=== PATIENT | female | born 1980 | race American Indian/Alaskan Native ===

== ENCOUNTER 2017-07-31 01:34 | Inpatient (IN) | payer MEDICAID, OTHER ==
--- NOTE | 2017-07-31 02:09 | C.PDOC ---
History Of Present Illness pt was seen and medically cleared at [facility] and was accepted in transfer by dr jimenes. Sapna voices no complaints at the present time Time Seen by Provider: 07/31/17 02:03 Chief Complaint (Nursing): Substance Abuse History Per: Patient History/Exam Limitations: no limitations Onset/Duration Of Symptoms: Days Current Symptoms Are (Timing): Still Present Suicide/Self Injury Attempted (Context): None Modifying Factor(s): Alcohol Severity: None Associated Symptoms: Depression Involuntary Hold By: None Recent travel outside of the [place]: No Additional History Per: Patient, EMS Past Medical History Reviewed: Historical Data, Nursing Documentation, Vital Signs Vital Signs: Last Vital Signs Temp 98.2 F 07/31/17 01:42 Pulse 86 07/31/17 01:42 Resp 18 07/31/17 01:42 BP 134/85 07/31/17 01:42 Pulse Ox 99 07/31/17 02:09 - Medical History PMH: Depression Family History: States: No Known Family Hx - Social History Hx Alcohol Use: Yes Hx Substance Use: No - Immunization History Hx Tetanus Toxoid Vaccination: No Hx Influenza Vaccination: No Hx Pneumococcal Vaccination: No Review Of Systems Constitutional: Negative for: Fever, Chills Cardiovascular: Negative for: Chest Pain Respiratory: Negative for: Shortness of Breath Gastrointestinal: Negative for: Abdominal Pain Musculoskeletal: Negative for: Back Pain Skin: Negative for: Rash Neurological: Negative for: Weakness Psych: Positive for: Depression Physical Exam - Physical Exam Appears: Non-toxic, No Acute Distress Skin: Warm, Dry Neck: Supple Chest: Symmetrical Cardiovascular: Rhythm Regular Respiratory: No Rales, No Rhonchi, No Wheezing Gastrointestinal/Abdominal: Soft, No Tenderness, No Distention Back: Normal Inspection Extremity: Normal ROM Extremity: Bilateral: Atraumatic Gait: Steady ED Course And Treatment O2 Sat by Pulse Oximetry: 99 Pulse Ox Interpretation: Normal Disposition Discussed With : Jimi Jimenes Comment: accepted the pt onhis service and took over the care at 2:10 AM Doctor Will See Patient In The: Hospital Counseled Patient/Family Regarding: Studies Performed, Diagnosis - Disposition Disposition: HOSPITALIZED Disposition Time: 02:09 Condition: FAIR Forms: [facility] (Swedish) - POA Present On Arrival: None - Clinical Impression Clinical Impression: Alcohol abuse, Major depression Decision To Admit - Pt Status Changed To: Hospital Disposition Of: Inpatient - Admit Certification Admit to Inpatient:: After my assessment, the patient will require hospitalization for at least two midnights. This is because of the severity of symptoms shown, intensity of services needed, and/or the medical risk in this patient being treated as an outpatient. - InPatient: Physician Admission Certification: I certify that this patient requires 2 or more midnights of care for the following reason:: After my assessment, the patient will require hospitalization for at least two midnights. This is because of the severity of symptoms shown, intensity of services needed, and/or the medical risk in this patient being treated as an outpatient. - . Bed Request Type: Psychiatry Admitting Physician: Jimi Jimenes Patient Diagnosis: Alcohol abuse, Major depression
--- NOTE | 2017-07-31 02:55 | PCM.BM ---
<RabiaLeatha florez - Last Filed: 07/31/17 02:53> Treatment Plan Problems - Problems identified on initial assessmt Depression Date Initiated: 07/31/17 Time Initiated: 02:50 Assessment reference: NA Status: Active Alcohol Abuse Date Initiated: 07/31/17 Time Initiated: 02:50 Assessment reference: NA Status: Active Treatment assets and liabiliti Patient Assests: cooperative, ADL independent, negotiates basic needs, cognitively intact Patient Liabilities: financial problems, relationship conflicts, substance abuse - Milieu Protocol Maintain good personal hygiene: daily Encourage regular showers, daily Remind patient to perform daily oral care, daily Assist patient to perform ADL's Conduct patient checks and document Observation sheet: Q15 minutes Maintain personal safety: every shift Educate patient to report safety concerns to staff, every shift Monitor environment for contraband/sharps Medication safety: Monitor for expected outcome, potential side effects: every shift, Assess barriers to learning: every shift, Assess readiness for medication education: every shift <Trena Carlton - Last Filed: 08/02/17 11:00> Family Contact Family involvement: Famliy/SO not involved - Goals for Treatment Patient goals for treatment: "I need help." Discharge/Continuing Care - Education Needs Education Needs: Patient Medication, Patient Coping Skills, Patient Placement options, Patient Community resources - Discharge Discharge Criteria: Tolerates medication w/o severe side effects, No longer exhibiting s/s of withdrawal Discharge to:: Home - Treatment Team Participation Discussed with Family/SO: No Was Patient/Family/SO present at Treatment Team Meeting: Yes <Jimi Jimenes - Last Filed: 08/02/17 11:05> - Diagnosis (1) Major depressive disorder, recurrent severe without psychotic features Status: Acute Interventions: 08/02/17 11:05 * Assess/adjust medications daily and /or as needed * See patient on an individual basis 7x/week to assess symptoms of depression * Monitor for side effects & effectiveness of medications * (2) Alcohol abuse Status: Acute Interventions: 08/02/17 11:05 * Assess 7x/week regarding severity of withdrawal * Educate regarding risks, benefits, side effects and alternatives of medications * Use Motivational Interviewing for abstinence * Use CBT for relapse prevention * Medication management for withdrawal symptoms * Encourage medication assisted treatment *
[2017-07-31] MEDS: Multiple Vitamins Tab PO SCH (11:16)
--- NOTE | 2017-07-31 13:12 | PCM.PSYCH ---
Initial Psychiatric Evaluation - Initial Psychiatric Evaluation Type of Admission: Voluntary Legal Status: Capacity Chief Complaint (in patient's own words): depressed, hallucinations History of Present Illness and Precipitating Events: 37 year old AA Female who was voluntary admitted due to depression and hallucinations. She is currently lives in an apartment, alone with no kids in [place], [place]. She was recently employed by a [email or web address], but was laid off 05/2017. She is currently unemployed and with an educational level of GED. Patient reports when she was 15 years old, she made a suicide attempt by trying to overdose on pain medication after a breakup. She was found on the bathroom floor and rushed to the hospital, where she remained in the ICU for a week. She reports following up with a Psychiatrist as outpatient for less than 5 visits. She was not started on any medications nor did she follow up with anyone since that event. In recent events, patient reports drinking every day 1-2 pints of wine initially and now vodka daily. She reports anxiety and tremors when she does not drink. Last drink was 5 days prior to day of admission. She reported that was the first time that she started to hallucinate. She stated she saw "little, short green men pointing at her, laughing and they had little voices". She also felt that someone was coming to get her, so she packed her bags and left her apartment. Police were called by neighbors due to the patient leaving all disheveled and distraught, with her apartment door wide open. She reports she does not sleep well at night, due to the constant racing thoughts. She is woken up every 30 minutes due to these thoughts, which she explains, are like a movie. She will fall asleep focused on one thought, and her dreams will pertain to that thought and it will play like a movie. Whether the movie starts or stops is dependent on whether she is sleeping or awake. Currently denies any voices being heard, any suicidal ideation or homicidal ideation. Patient has poor judgment and insight about her condition. PMHx: Neuropathy (no history of DM or neurological workup) Past Psych History: Depression, suicide attempt at the age of 15 by overdosing on pain medication Family Psych Hx: Unknown Current Medications: Active Medications Generic Name Dose Route Start Last Admin Trade Name Freq PRN Reason Stop Dose Admin Clonidine HCl 0.1 mg 07/31/17 10:45 Catapres PO Q4H PRN Symptoms of alcohol withdrawl Folic Acid 1 mg 07/31/17 11:00 07/31/17 11:16 Folic Acid PO 1 mg DAILY SUN Administration Lorazepam 1 mg 07/31/17 10:45 Ativan PO Q6 PRN Symptoms of alcohol withdrawl Multivitamins 1 tab 07/31/17 11:00 07/31/17 11:16 Hexavitamin PO 1 tab DAILY SUN Administration Pneumococcal Polyvalent Vaccine 0.5 ml 08/03/17 10:00 Pneumovax 23 Vaccine IM 08/03/17 10:01 .ONCE ONE Sertraline HCl 50 mg 08/01/17 10:00 Zoloft PO DAILY SUN Thiamine HCl 100 mg 07/31/17 11:00 07/31/17 11:16 Vitamin B1 Tab PO 100 mg DAILY SUN Administration Trazodone HCl 50 mg 07/31/17 22:00 Desyrel PO HS PRN Insomnia Past Psychiatric History - Past Psychiatric History Pertinent Medical Hx (Current Medical&Sleep Prob, Allergies): Allergies Allergy/AdvReac Type Severity Reaction Status Date / Time No Known Allergies Allergy Unverified 07/31/17 01:37 Folic Acid 1 mg PO DAILY 07/31/17 Magnesium Oxide [Mag-Ox] 400 mg PO DAILY 07/31/17 Potassium Chloride [K-Dur 20] 20 meq PO DAILY 07/31/17 Sod Phos Di, [place]/K Phos Licking [Phospha 250 Neutral Tablet] 500 mg PO DAILY 07/31 Review of Systems - Review of Systems All systems: reviewed and no additional remarkable complaints except - Psychiatric Psychiatric: Auditory Hallucinations, Depression, Difficulty Concentrating, Hallucinations, Irritability, Paranoia. absent: Suicidal Ideation, Visual Hallucinations Mental Status Examination - Personal Presentation Personal Presentation: Looks older than stated age - Affect Affect: Flat, Depressed - Motor Activity Motor Activity: Calm - Reliability in Providing Information Reliability in Providing Information: Poor, due to alteration in thoughts, Poor , due to altered mood - Speech Speech: Organized, Relevant, Incoherent - Mood Mood: Depressed - Formal Thought Process Formal Thought Process: Hallucinations, Paranoia - Hallucinations/Delusions Hallucinations: Visual, Auditory - Cognitive Functions Orientation: Person, Place, Situation, Time Judgement: Imparied, as evidence by: Poor judgement, Imparied, as evidence by: Lack of insight into illness - Limitations Limitations: Living alone DSM 5 DX - Recommended/Plan of Treatment Treatment Recommendations and Plan of Treatment: Major Depressive Disorder -CBT -Psychoeducation -Supportive therapy, group therapy, individual therapy -Zoloft 50mg by mouth daily Alcohol Use Disorder -CBT -Psychoeducation -Supportive therapy, individual therapy -Use IA for abstinence -MV, Thiamine and Folic acid daily -Ativan and Clonidine as needed for withdrawal symptoms DW Dr. Jimenes, Fadumo Forbes DO, PGY-1
[2017-08-01 08:32] LABS: ALB/GLOB RATIO 0.9 (1.0-2.1); ALBUMIN 2.6 g/dL (3.5-5.0); ALT/SGPT 67 U/L (9-52); AST/SGOT 213 U/L (14-36); BLOOD UREA NITROGEN 6 mg/dL (7-17); CALCIUM 8.1 mg/dl (8.6-10.4); GFR AFRICAN-AMERICAN > 60; GFR NON-AFRICAN AMERICAN > 60
[2017-08-01] MEDS: Multiple Vitamins Tab PO SCH (09:59)
--- NOTE | 2017-08-01 22:11 | PCM.PYCHPN ---
Psychiatric Progress Note - Psychiatric Progress Note Patient seen today, length of contact: 15 min Patient Chief Complaint: I'm feeling depressed Problems Identified/Issues Discussed: Patient seen and evaluated, chart reviewed and discussed with the nurse. As per the staff, patient still appears isolated, depressed and withdrawn. She reports depressed mood and reports at times feelings of hopelessness and helplessness. She reports some withdrawal symptoms including cramps, anxiety and sweating. She reports some improvement in the voices and sleep. She needs some more time for stabilization. She is compliant with her medications and denies any side effects. Supportive therapy and psychoeducation were given. Medication Change: Yes (Increase Zoloft) Medical Record Reviewed: Yes Mental Status Examination - Cognitive Function Orientation: Person, Place, Situation, Time Memory: Intact Attention: WNL Concentration: Poor Association: WNL Fund of Knowledge: Poor - Mood Mood: Depressed, Anxious - Affect Affect: Constricted, Depressed - Formal Thought Process Formal Thought Process: Hallucinations, Paranoia - Suicidal Ideation Suicidal Ideation: No - Homicidal Ideation Homicidal Ideation: No Goal/Treatment Plan - Goal/Treatment Plan Need for Continued Stay: Severe depression anxiety, Severe functional impairment Progress Toward Problem(s) and Goals/Treatment Plan: Major Depressive Disorder recurrent severe with psychotic features -CBT -Psychoeducation -Supportive therapy, group therapy, individual therapy -Trazodone 50 mg by mouth daily at bedtime -Increase Zoloft to 100 mg by mouth daily Alcohol Use Disorder -CBT -Psychoeducation -Supportive therapy, individual therapy -Use GA for abstinence -MV, Thiamine and Folic acid daily -Ativan and Clonidine as needed for withdrawal symptoms - Smoking Cessation Smoking Cessation Initiated: No
[2017-08-02] MEDS: Multiple Vitamins Tab PO SCH (09:43)
--- NOTE | 2017-08-02 11:05 | PCM.PYCHPN ---
Psychiatric Progress Note - Psychiatric Progress Note Patient seen today, length of contact: 15 min Patient Chief Complaint: My stomach is hurting.' Problems Identified/Issues Discussed: Patient seen and evaluated, chart reviewed and discussed with the nurse. The patient reports pain in her stomach, however she denies any vomiting, diarrhea or any other symptoms. She still reports depressed mood but reports some improvement in the feelings of hopelessness. As per the staff, patient still appears isolated, depressed and withdrawn. She reports some improvement in the voices and sleep. She needs some more time for stabilization. She is compliant with her medications and denies any side effects. Supportive therapy and psychoeducation were given. Medication Change: Yes (Start Neurontin) Medical Record Reviewed: Yes Mental Status Examination - Cognitive Function Orientation: Person, Place, Situation, Time Memory: Intact Attention: WNL Concentration: Poor Association: WNL Fund of Knowledge: Poor - Mood Mood: Depressed, Anxious - Affect Affect: Constricted, Depressed - Formal Thought Process Formal Thought Process: Hallucinations - Suicidal Ideation Suicidal Ideation: No - Homicidal Ideation Homicidal Ideation: No Goal/Treatment Plan - Goal/Treatment Plan Need for Continued Stay: Severe depression anxiety, Severe functional impairment Progress Toward Problem(s) and Goals/Treatment Plan: Major Depressive Disorder recurrent severe with psychotic features -CBT -Psychoeducation -Supportive therapy, group therapy, individual therapy -Trazodone 50 mg by mouth daily at bedtime -Increase Zoloft to 100 mg by mouth daily -Neurontin 100 mg by mouth 3 times a day Alcohol Use Disorder -CBT -Psychoeducation -Supportive therapy, individual therapy -Use [place] for abstinence -MV, Thiamine and Folic acid daily -Ativan and Clonidine as needed for withdrawal symptoms - Smoking Cessation Smoking Cessation Initiated: No
[2017-08-03 08:55] LABS: BASO # 0.1 K/uL (0.0-0.2); BASO % 0.3 % (0.0-2.0); EOS # 0.1 K/uL (0.0-0.7); EOS % 0.3 % (0.0-4.0); HEMOGLOBIN 12.1 g/dL (11.0-16.0); LYMPH # 1.9 K/uL (1.0-4.3); LYMPH % 10.5 % (20.0-40.0); MEAN CELL VOLUME 107.3 fL (81.0-99.0); MEAN CORPUSCULAR HEMOGLOBIN 38.4 pg (27.0-31.0); MEAN CORPUSCULAR HGB CONC 35.8 g/dL (33.0-37.0); MEAN PLATELET VOLUME 9.1 fL (7.2-11.7); MONO # 1.5 K/uL (0.0-0.8); NEUT # 14.7 K/uL (1.8-7.0); NEUT % 80.9 % (50.0-75.0); RBC 3.17 Mil/uL (3.80-5.20); WHITE BLOOD COUNT 18.2 K/uL (4.8-10.8)
[2017-08-03 09:22] LABS: ALB/GLOB RATIO 0.9 (1.0-2.1); ALBUMIN 3.4 g/dL (3.5-5.0); ALT/SGPT 78 U/L (9-52); AMYLASE 64 U/L (30-110); AST/SGOT 185 U/L (14-36); BLOOD UREA NITROGEN 8 mg/dL (7-17); CALCIUM 8.6 mg/dl (8.6-10.4); GFR AFRICAN-AMERICAN > 60; GFR NON-AFRICAN AMERICAN > 60; LIPASE 183 U/L (23-300)
[2017-08-03] MEDS: Multiple Vitamins Tab PO SCH (09:33)
--- NOTE | 2017-08-03 09:49 | PCM.PYCHPN ---
Psychiatric Progress Note - Psychiatric Progress Note Patient seen today, length of contact: 15 min Patient Chief Complaint: My stomach is hurting.' Problems Identified/Issues Discussed: Patient seen and evaluated, chart reviewed and discussed with the nurse. The patient reports pain in her stomach, however she denies any vomiting, diarrhea or any other symptoms. She still reports depressed mood but reports some improvement in the feelings of hopelessness. As per the staff, patient still appears isolated, depressed and withdrawn. She reports some improvement in the voices and sleep. She needs some more time for stabilization. She is compliant with her medications and denies any side effects. Supportive therapy and psychoeducation were given. Medication Change: Yes (Start Neurontin) Medical Record Reviewed: Yes Mental Status Examination - Cognitive Function Orientation: Person, Place, Situation, Time Memory: Intact Attention: WNL Concentration: Poor Association: WNL Fund of Knowledge: Poor - Mood Mood: Depressed, Anxious - Affect Affect: Constricted, Depressed - Formal Thought Process Formal Thought Process: Hallucinations - Suicidal Ideation Suicidal Ideation: No - Homicidal Ideation Homicidal Ideation: No Goal/Treatment Plan - Goal/Treatment Plan Need for Continued Stay: Severe depression anxiety, Severe functional impairment Progress Toward Problem(s) and Goals/Treatment Plan: Major Depressive Disorder recurrent severe with psychotic features -CBT -Psychoeducation -Supportive therapy, group therapy, individual therapy -Trazodone 50 mg by mouth daily at bedtime -Increase Zoloft to 100 mg by mouth daily -Neurontin 100 mg by mouth 3 times a day Alcohol Use Disorder -CBT -Psychoeducation -Supportive therapy, individual therapy -Use [place] for abstinence -MV, Thiamine and Folic acid daily -Ativan and Clonidine as needed for withdrawal symptoms
[2017-08-03] MEDS ORDERED: Pneumococcal 23-Valent Vaccine IM ONE (10:00)
[2017-08-03] MEDS ORDERED: Influenza Vaccine 60 mcg/0.5 mL SYR (4YR UP) IM ONE (10:00)
[2017-08-03] MEDS ORDERED: Potassium Chloride 20 mEq ER Tab PO STA (13:44)
[2017-08-03] MEDS ORDERED: Potassium Chloride 20 mEq ER Tab PO SCH (13:45)
[2017-08-03 15:22] LABS: SQUAMOUS EPITHIAL 19 /hpf (0-5); URINE BACTERIA OCC (<OCC); URINE BILIRUBIN 1+ (NEGATIVE); URINE BLOOD NEGATIVE (NEGATIVE); URINE CLARITY Hazy (Clear); URINE COLOR Amber (YELLOW); URINE GLUCOSE (UA) 1+ mg/dL (Normal); URINE HYALINE CAST >20 /lpf (0-2); URINE LEUKOCYTE ESTERASE 1+ Leu/uL (Negative); URINE NITRATE NEGATIVE (NEGATIVE); URINE PROTEIN 2+ mg/dL (NEGATIVE)
--- NOTE | 2017-08-03 18:28 | CP.PCM.CON ---
<Xenia Sood - Last Filed: 08/03/17 18:22> History of Present Illness - History of Present Illness History of Present Illness: Medicine cnsult note for Dr. De Leon: 37 year old female with a heavy past psych history, alcoholic hepatitis, hx recent pancreatitis and UTI states that she recently went to [facility] for depression but also complaining of abdominal pain and dysuria. She stated that she was treated there then was transferred here to [facility] for further psych management. Medicine team was consulted for leukocytosis. Patient denied fever/chills but admitted to generalized abdominal pain worse in the RUQ and epigastric region. She states this has been going on for quite some time and she has been to multiple hospital and was told that she was damaging her liver from drinking. She denied diarrhea/constipation. Patient recently lost her job in May because she states she was drinking Vodka daily. She denied chest pain, shortness of breath, headaches, changes in vision, cough, N/V , pain/swelling in the extremities. She denies dysuria or urinary frequency but stated she was recently treated with IV abx at [place] for a UTI. Patient does not have a PMD that she follow up with outpatient. Review of Systems - Constitutional Constitutional: absent: Chills, Fever - EENT Eyes: absent: Blurred Vision, Change in Vision Nose/Mouth/Throat: absent: Nasal Congestion, Nasal Discharge - Breasts Breasts: Skin Changes - Cardiovascular Cardiovascular: Pedal Edema. absent: Chest Pain, Palpitations - Respiratory Respiratory: absent: Cough, Dyspnea, Dyspnea on Exertion - Gastrointestinal Gastrointestinal: Abdominal Pain. absent: Constipation, Diarrhea, Dysphagia, Hematemesis, Hematochezia, Melena, Nausea, Odynophagia, Vomiting - Genitourinary Genitourinary: absent: Change in Urinary Stream, Difficulty Urinating - Musculoskeletal Musculoskeletal: absent: Arthralgias, Muscle Cramps, Numbness, Tingling - Psychiatric Psychiatric: Depression, Hallucinations. absent: Homicidal Ideation, Suicidal Ideation Past Patient History - Infectious Disease Hx of Infectious Diseases: None - Past Social History Smoking Status: Light Smoker < 10 Cigarettes Daily - CARDIAC Hx Cardiac Disorders: No - PULMONARY Hx Respiratory Disorders: No - NEUROLOGICAL Hx Neurological Disorder: Yes Other/Comment: PERIPHERAL NEUROPATHY - HEENT Hx HEENT Problems: No - RENAL Hx Chronic Kidney Disease: No - ENDOCRINE/METABOLIC Hx Endocrine Disorders: No - HEMATOLOGICAL/ONCOLOGICAL Hx Blood Disorders: No - INTEGUMENTARY Hx Dermatological Problems: No - MUSCULOSKELETAL/RHEUMATOLOGICAL Hx Musculoskeletal Disorders: No - GASTROINTESTINAL Hx Pancreatitis: Yes - GENITOURINARY/GYNECOLOGICAL Hx Genitourinary Disorders: No - PSYCHIATRIC Hx Substance Use: Yes - SURGICAL HISTORY Hx Surgeries: No - ANESTHESIA Hx Anesthesia: No Meds Allergies/Adverse Reactions: Allergies Allergy/AdvReac Type Severity Reaction Status Date / Time No Known Allergies Allergy Unverified 07/31/17 01:37 - Medications Medications: Current Medications Clonidine HCl (Catapres) 0.1 mg PO Q4H PRN PRN Reason: Symptoms of alcohol withdrawl Folic Acid (Folic Acid) 1 mg PO DAILY [facility] Last Admin: 08/03/17 09:33 Dose: 1 mg Gabapentin (Neurontin) 100 mg PO TID [facility] Last Admin: 08/03/17 13:36 Dose: 100 mg Loperamide HCl (Imodium) 2 mg PO Q6H PRN PRN Reason: Diarrhea Last Admin: 08/02/17 17:34 Dose: 2 mg Lorazepam (Ativan) 1 mg PO Q6 PRN PRN Reason: Symptoms of alcohol withdrawl Last Admin: 08/01/17 16:49 Dose: 1 mg Multivitamins (Hexavitamin) 1 tab PO DAILY [facility] Last Admin: 08/03/17 09:33 Dose: 1 tab Nitrofurantoin Macrocrystals (Macrobid) 100 mg PO Q12H [facility] Sertraline HCl (Zoloft) 100 mg PO DAILY [facility] Last Admin: 08/03/17 09:33 Dose: 100 mg Thiamine HCl (Vitamin B1 Tab) 100 mg PO DAILY [facility] Last Admin: 08/03/17 09:33 Dose: 100 mg Trazodone HCl (Desyrel) 100 mg PO HS PRN PRN Reason: Insomnia Physical Exam - Constitutional Appears: Non-toxic, No Acute Distress - Head Exam Head Exam: ATRAUMATIC, NORMAL INSPECTION - Eye Exam Eye Exam: EOMI - ENT Exam ENT Exam: Mucous Membranes Moist - Respiratory Exam Respiratory Exam: Clear to Auscultation Bilateral, NORMAL BREATHING PATTERN. absent: Respiratory Distress - Cardiovascular Exam Cardiovascular Exam: REGULAR RHYTHM, +S1, +S2 - GI/Abdominal Exam GI & Abdominal Exam: Normal Bowel Sounds, Soft, Tenderness (diffusely tender, more in the RUQ and epigastric region). absent: Distended, Firm, Guarding, Organomegaly, Pulsatile Mass, Rebound - Extremities Exam Extremities exam: Positive for: normal inspection. Negative for: calf tenderness, pedal edema - Back Exam Back exam: NORMAL INSPECTION. absent: CVA tenderness (L), CVA tenderness (R), paraspinal tenderness - Neurological Exam Neurological exam: Alert, CN II-XII Intact, Normal Gait, Oriented x3 - Psychiatric Exam Psychiatric exam: Normal Affect, Normal Mood - Skin Skin Exam: Dry, Intact, Normal Color, Warm Results - Vital Signs Recent Vital Signs: Last Vital Signs Temp 98.8 F 08/03/17 07:13 Pulse 84 08/03/17 16:49 Resp 20 08/03/17 07:13 BP 132/79 08/03/17 16:49 Pulse Ox 96 08/03/17 07:13 - Labs Result Diagrams: 08/03/17 08:48 08/03/17 08:48 Labs: Laboratory Results - last 24 hr 08/03/17 08/03/17 08/03/17 08:48 08:48 15:15 WBC 18.2 H RBC 3.17 L Hgb 12.1 Hct 34.0 MCV 107.3 H MCH 38.4 H MCHC 35.8 RDW 14.0 Plt Count 402 H MPV 9.1 Neut % (Auto) 80.9 H Lymph % (Auto) 10.5 L Morrison % (Auto) 8.0 Eos % (Auto) 0.3 Baso % (Auto) 0.3 Neut # (Auto) 14.7 H Lymph # (Auto) 1.9 Morrison # (Auto) 1.5 H Eos # (Auto) 0.1 Baso # (Auto) 0.1 Differential Comment Sodium 134 Potassium 3.2 L Chloride 90 L Carbon Dioxide 32 H Anion Gap 16 BUN 8 Creatinine 0.6 L Est GFR ( Amer) > 60 Est GFR (Non-Af Amer) > 60 Random Glucose 104 Calcium 8.6 Total Bilirubin 1.4 H AST 185 H ALT 78 H Alkaline Phosphatase 359 H Total Protein 7.0 Albumin 3.4 L D Globulin 3.6 Albumin/Globulin Ratio 0.9 L Amylase 64 Lipase 183 Urine Color Arlin Urine Clarity Hazy Urine pH 5.0 Ur Specific Dunlevy 1.021 Urine Protein 2+ H Urine Glucose (UA) 1+ Urine Ketones Trace Urine Blood Negative Urine Nitrate Negative Urine Bilirubin 1+ H Urine Urobilinogen 4.0 H Ur Leukocyte Esterase 1+ H Urine WBC (Auto) 35 H Urine RBC (Auto) 25 H Ur Squamous Epith Cells 19 H Urine Bacteria Occ H Hyaline Casts >20 H Assessment & Plan - Assessment and Plan (Free Text) Assessment: Leukocytosis f/u abd/pelvis CT w and w/o contrast WBC 18.2 (recently was ~ 10 on admission at [place]) predominantly neutrophils CRP >15 f/u UA, urine culture, blood culture f/u TSH, procalcitonin, ESR f/u chest X ray Start Macrobid 100mg PO Q12 for possible UTI f/u am labs Hypokalemia K 3.2 40 meq KCL given f/u am labs Tramsaminitis AST/ALT 185/78 Tbil 1.4 Patient with hx of alchol abuse and fatty liver dx per abd US done at [place] f/u hepaitis panel, HIV All psych management for Psychiatry. Patient is ambulating and tolerating regular diet. BhCg negative <Lucy De Leon V - Last Filed: 08/04/17 10:08> Meds - Medications Medications: Current Medications Clonidine HCl (Catapres) 0.1 mg PO Q4H PRN PRN Reason: Symptoms of alcohol withdrawl Folic Acid (Folic Acid) 1 mg PO DAILY [facility] Last Admin: 08/04/17 09:47 Dose: 1 mg Gabapentin (Neurontin) 100 mg PO TID [facility] Last Admin: 08/04/17 09:47 Dose: 100 mg Loperamide HCl (Imodium) 2 mg PO Q6H PRN PRN Reason: Diarrhea Last Admin: 08/02/17 17:34 Dose: 2 mg Lorazepam (Ativan) 1 mg PO Q6 PRN PRN Reason: Symptoms of alcohol withdrawl Last Admin: 08/01/17 16:49 Dose: 1 mg Magnesium Oxide (Mag-Ox) 400 mg PO BID [facility] Multivitamins (Hexavitamin) 1 tab PO DAILY [facility] Last Admin: 08/04/17 09:47 Dose: 1 tab Nitrofurantoin Macrocrystals (Macrobid) 100 mg PO Q12H [facility] Last Admin: 08/04/17 05:34 Dose: 100 mg Potassium Chloride (K-Dur 20 Meq Er Tab) 40 meq PO Q4H [facility] Stop: 08/04/17 14:01 Sertraline HCl (Zoloft) 100 mg PO DAILY [facility] Last Admin: 08/04/17 09:47 Dose: 100 mg Thiamine HCl (Vitamin B1 Tab) 100 mg PO DAILY [facility] Last Admin: 08/04/17 09:47 Dose: 100 mg Trazodone HCl (Desyrel) 100 mg PO HS PRN PRN Reason: Insomnia Last Admin: 08/03/17 22:05 Dose: 100 mg Results - Vital Signs Recent Vital Signs: Last Vital Signs Temp 98 F 08/04/17 05:31 Pulse 77 08/04/17 05:31 Resp 16 08/04/17 05:31 BP 152/87 H 08/04/17 05:31 Pulse Ox 98 08/04/17 05:31 - Labs Result Diagrams: 08/04/17 07:25 08/04/17 07:25 Labs: Laboratory Results - last 24 hr 08/03/17 08/03/17 08/03/17 08:48 15:15 17:46 WBC 18.2 H RBC 3.17 L Hgb 12.1 Hct 34.0 MCV 107.3 H MCH 38.4 H MCHC 35.8 RDW 14.0 Plt Count 402 H MPV 9.1 Neut % (Auto) 80.9 H Lymph % (Auto) 10.5 L Morrison % (Auto) 8.0 Eos % (Auto) 0.3 Baso % (Auto) 0.3 Neut # (Auto) 14.7 H Lymph # (Auto) 1.9 Morrison # (Auto) 1.5 H Eos # (Auto) 0.1 Baso # (Auto) 0.1 Differential Comment ESR 88 H Sodium Potassium Chloride Carbon Dioxide Anion Gap BUN Creatinine Est GFR ( Amer) Est GFR (Non-Af Amer) Random Glucose Calcium Magnesium Total Bilirubin AST ALT Alkaline Phosphatase C-React Prot High Sens Total Protein Albumin Globulin Albumin/Globulin Ratio Procalcitonin TSH 3rd Generation Beta HCG, Quant Urine Color Arlin Urine Clarity Hazy Urine pH 5.0 Ur Specific Dunlevy 1.021 Urine Protein 2+ H Urine Glucose (UA) 1+ Urine Ketones Trace Urine Blood Negative Urine Nitrate Negative Urine Bilirubin 1+ H Urine Urobilinogen 4.0 H Ur Leukocyte Esterase 1+ H Urine WBC (Auto) 35 H Urine RBC (Auto) 25 H Ur Squamous Epith Cells 19 H Urine Bacteria Occ H Hyaline Casts >20 H Hepatitis A IgM Ab Hep Bs Antigen Hep B Core IgM Ab Hepatitis C Antibody HIV 1&2 Antibody Screen 08/03/17 08/03/17 08/03/17 17:46 17:46 17:46 WBC RBC Hgb Hct MCV MCH MCHC RDW Plt Count MPV Neut % (Auto) Lymph % (Auto) Morrison % (Auto) Eos % (Auto) Baso % (Auto) Neut # (Auto) Lymph # (Auto) Morrison # (Auto) Eos # (Auto) Baso # (Auto) Differential Comment ESR Sodium Potassium Chloride Carbon Dioxide Anion Gap BUN Creatinine Est GFR ( Amer) Est GFR (Non-Af Amer) Random Glucose Calcium Magnesium Total Bilirubin AST ALT Alkaline Phosphatase C-React Prot High Sens > 15.00 H Total Protein Albumin Globulin Albumin/Globulin Ratio Procalcitonin 0.38 TSH 3rd Generation Beta HCG, Quant Urine Color Urine Clarity Urine pH Ur Specific Dunlevy Urine Protein Urine Glucose (UA) Urine Ketones Urine Blood Urine Nitrate Urine Bilirubin Urine Urobilinogen Ur Leukocyte Esterase Urine WBC (Auto) Urine RBC (Auto) Ur Squamous Epith Cells Urine Bacteria Hyaline Casts Hepatitis A IgM Ab Negative Hep Bs Antigen Negative Hep B Core IgM Ab Negative Hepatitis C Antibody Negative HIV 1&2 Antibody Screen 08/03/17 08/03/17 08/03/17 17:46 17:46 17:46 WBC RBC Hgb Hct MCV MCH MCHC RDW Plt Count MPV Neut % (Auto) Lymph % (Auto) Morrison % (Auto) Eos % (Auto) Baso % (Auto) Neut # (Auto) Lymph # (Auto) Morrison # (Auto) Eos # (Auto) Baso # (Auto) Differential Comment ESR Sodium Potassium Chloride Carbon Dioxide Anion Gap BUN Creatinine Est GFR ( Amer) Est GFR (Non-Af Amer) Random Glucose Calcium Magnesium Total Bilirubin AST ALT Alkaline Phosphatase C-React Prot High Sens Total Protein Albumin Globulin Albumin/Globulin Ratio Procalcitonin TSH 3rd Generation 4.18 Beta HCG, Quant < 2.39 Urine Color Urine Clarity Urine pH Ur Specific Dunlevy Urine Protein Urine Glucose (UA) Urine Ketones Urine Blood Urine Nitrate Urine Bilirubin Urine Urobilinogen Ur Leukocyte Esterase Urine WBC (Auto) Urine RBC (Auto) Ur Squamous Epith Cells Urine Bacteria Hyaline Casts Hepatitis A IgM Ab Hep Bs Antigen Hep B Core IgM Ab Hepatitis C Antibody HIV 1&2 Antibody Screen Negative 08/04/17 08/04/17 07:25 07:25 WBC 13.9 H RBC 2.80 L Hgb 10.5 L Hct 30.0 L MCV 107.2 H MCH 37.7 H MCHC 35.2 RDW 13.6 Plt Count 363 MPV 9.7 Neut % (Auto) 76.0 H Lymph % (Auto) 13.3 L Morrison % (Auto) 9.9 Eos % (Auto) 0.5 Baso % (Auto) 0.3 Neut # (Auto) 10.6 H Lymph # (Auto) 1.9 Morrison # (Auto) 1.4 H Eos # (Auto) 0.1 Baso # (Auto) 0.0 Differential Comment ESR 102 H Sodium 136 Potassium 2.9 L Chloride 93 L Carbon Dioxide 33 H Anion Gap 12 BUN 8 Creatinine 0.6 L Est GFR ( Amer) > 60 Est GFR (Non-Af Amer) > 60 Random Glucose 84 Calcium 8.5 L Magnesium 1.2 L Total Bilirubin 0.9 AST 133 H D ALT 68 H Alkaline Phosphatase 279 H D C-React Prot High Sens Total Protein 5.9 L Albumin 2.8 L Globulin 3.1 Albumin/Globulin Ratio 0.9 L Procalcitonin TSH 3rd Generation Beta HCG, Quant Urine Color Urine Clarity Urine pH Ur Specific Dunlevy Urine Protein Urine Glucose (UA) Urine Ketones Urine Blood Urine Nitrate Urine Bilirubin Urine Urobilinogen Ur Leukocyte Esterase Urine WBC (Auto) Urine RBC (Auto) Ur Squamous Epith Cells Urine Bacteria Hyaline Casts Hepatitis A IgM Ab Hep Bs Antigen Hep B Core IgM Ab Hepatitis C Antibody HIV 1&2 Antibody Screen Attending/Attestation - Attestation I have personally seen and examined this patient.: Yes I have fully participated in the care of the patient.: Yes I have reviewed all pertinent clinical information: Yes Notes (Text): This is late computer entry for 08/03/17. Medicine team consulted for leukocytosis. Patient was a transferred from [place] to inpatient [facility]. Upon the ED visit , patient's white count was normalized at 10 with negative urine . Patient had had prolonged QT 530 in the ED visit but has improved at [place] on repeat. Patient reports she has had abdominal pain, and diarrrhea, but the diarrhea has becoming less and less. Last episode over night, patient had yellow-greenish stool. Patient reports she has a history of eating disorder which she is recovered, used to vomit, and believes she is slowly gaining weight. Patient reports she has not had her menstruation for over one year ago. Patient denies any thyroid disorder, denies any new exercise regimen, denies fever, denies chills, denies URI, denies urinary symptoms except for mild dysuria. On exam, patient is awake, alert, oriented X2, NAD Heart: s1, s2, regular rate rhythm Lung: CTA b/l no W/R/R/ Abdomen: soft mild tenderness, epigastric, nondistended, no rebound, no guarding , no rigidity extremities: no cyanosis, no clubbing, no edema b/l upper and lower extremities Skin: patient has multiple tattoos over the body Assessment/Plan 1) Leukocytosis * Will rule out infection * f/u abd/pelvis CT w and w/o contrast * WBC 18.2 (recently was ~ 10 on admission at [place]); ESR: 88, CRP >15 * f/u UA, urine culture, blood culture * f/u TSH, procalcitonin * f/u chest X ray r/o pneumonia * Start Macrobid 100mg PO Q12 for possible UTI * f/u am labs 2) Hypokalemia * K 3.2 * 40 meq KCL given * f/u am labs 3) Tramsaminitis * AST/ALT 185/78; Tbil 1.4 * Patient with hx of alcohol abuse and fatty liver dx per abd US done at [place]-->available in the paper chart. * f/u hepatic panel, HIV
[2017-08-03 18:38] LABS: HEPATITIS B SURFACE AG Negative (NEGATIVE)
[2017-08-03 18:44] LABS: HEPATITIS A IGM NEGATIVE (NEGATIVE); HEPATITIS B CORE AB NEGATIVE (NEGATIVE)
[2017-08-03 18:56] LABS: HEPATITIS C ANTIBODY NEGATIVE (NEGATIVE)
--- NOTE | 2017-08-04 07:31 | CP.PCM.PN ---
<Xenia Sood - Last Filed: 08/04/17 17:36> Subjective - Date & Time of Evaluation Date of Evaluation: 08/04/17 Time of Evaluation: 07:00 - Subjective Subjective: Patient was seen and examined at bedside this morning. She states that she is still having abdominal pain with some nausea. She denies all other complaints such a vomiting, chest pain or shortness of breath. Patient is tolerating her diet. Patient denies urinary complaints. CT showed pancreatitis with phlegnon and pseudocyst formation. Patient was immediately transferred to the medical floor from the psych unit for further medical management. Objective - Vital Signs/Intake and Output Vital Signs (last 24 hours): Temp Pulse Resp BP Pulse Ox 98 F 77 16 152/87 H 98 08/04/17 05:31 08/04/17 05:31 08/04/17 05:31 08/04/17 05:31 08/04/17 05:31 - Medications Medications: Current Medications Clonidine HCl (Catapres) 0.1 mg PO Q4H PRN PRN Reason: Symptoms of alcohol withdrawl Folic Acid (Folic Acid) 1 mg PO DAILY [facility] Last Admin: 08/03/17 09:33 Dose: 1 mg Gabapentin (Neurontin) 100 mg PO TID [facility] Last Admin: 08/03/17 18:33 Dose: 100 mg Loperamide HCl (Imodium) 2 mg PO Q6H PRN PRN Reason: Diarrhea Last Admin: 08/02/17 17:34 Dose: 2 mg Lorazepam (Ativan) 1 mg PO Q6 PRN PRN Reason: Symptoms of alcohol withdrawl Last Admin: 08/01/17 16:49 Dose: 1 mg Multivitamins (Hexavitamin) 1 tab PO DAILY [facility] Last Admin: 08/03/17 09:33 Dose: 1 tab Nitrofurantoin Macrocrystals (Macrobid) 100 mg PO Q12H [facility] Last Admin: 08/04/17 05:34 Dose: 100 mg Sertraline HCl (Zoloft) 100 mg PO DAILY [facility] Last Admin: 08/03/17 09:33 Dose: 100 mg Thiamine HCl (Vitamin B1 Tab) 100 mg PO DAILY [facility] Last Admin: 08/03/17 09:33 Dose: 100 mg Trazodone HCl (Desyrel) 100 mg PO HS PRN PRN Reason: Insomnia Last Admin: 08/03/17 22:05 Dose: 100 mg - Labs Labs: 08/03/17 08:48 08/03/17 08:48 - Constitutional Appears: Non-toxic, No Acute Distress - Head Exam Head Exam: ATRAUMATIC, NORMAL INSPECTION - Eye Exam Eye Exam: EOMI, PERRL Pupil Exam: NORMAL ACCOMODATION - ENT Exam ENT Exam: Mucous Membranes Moist - Respiratory Exam Respiratory Exam: Clear to Ausculation Bilateral, NORMAL BREATHING PATTERN. absent: Wheezes, Respiratory Distress - Cardiovascular Exam Cardiovascular Exam: REGULAR RHYTHM, +S1 - GI/Abdominal Exam GI & Abdominal Exam: Soft, Tenderness, Normal Bowel Sounds. absent: Distended, Firm, Guarding Additional comments: diffuse more in epigastric right upper quadrant - Extremities Exam Extremities Exam: Normal Inspection. absent: Calf Tenderness - Back Exam Back Exam: NORMAL INSPECTION. absent: CVA tenderness (L), CVA tenderness (R), paraspinal tenderness - Neurological Exam Neurological Exam: Alert, Awake, CN II-XII Intact, Normal Gait, Oriented x3 Neuro motor strength exam: Left Upper Extremity: 5, Right Upper Extremity: 5, Left Lower Extremity: 5, Right Lower Extremity: 5 - Psychiatric Exam Psychiatric exam: Normal Affect, Normal Mood - Skin Skin Exam: Dry, Intact, Normal Color, Warm Assessment and Plan - Assessment and Plan (Free Text) Assessment: Pancreatitis * CT abd/pelvis 08/04: findings consistent with acute pancreatitis associates with peripancreatic fluid and infiltration and pseudocyst formation abutting great curvature/posterior margin of the stomach. There are also large a amporphus phlegmonous component of inflammatory changes anterior to the pancreatic head and body (please see full report) * Surgery consulted, Dr. Lau, help appreciated * ID consulted, Dr. Victor, help appreciated * Start Zosyn 3.375 gram IVPB every 6 hours * Lipase 183 from 10/01 * LR at 200 cc/hour * NPO Leukocytosis * Will rule out infection - likely secondary to pancreatitis, improving, patient is afebrile * WBC 18.2 (recently was ~ 10 on admission at [facility] [place]); ESR: 88, CRP >15 * f/u UA: 2+ protein, 1+ bilirubin, 1+ LE, WBC 35, RBC 25 * urine culture - no growth * blood culture * procalcitonin 0.38 * f/u chest X ray r/o pneumonia * Given 2 doses Macrobid for UTI * BHcg negative * f/u am labs Hypokalemia * K 3.2 * KCL 20 meq IV given x 2 * f/u am labs Hypomagnesia * Mg 1.2 * Mg 2 gram IVPB * f/u am labs Tramsaminitis * AST/ALT 185/78 stab;e; Tbil 0.9 (down from 1.4) * Patient with hx of alcohol abuse and fatty liver dx per abd US done at [place]-->available in the paper chart. * Hepatitis negative * HIV nonreactive SCDS Protonix 40mg PO daily NPO <Lucy De Leon V - Last Filed: 08/05/17 19:05> Objective - Vital Signs/Intake and Output Vital Signs (last 24 hours): Temp Pulse Resp BP Pulse Ox 98.4 F 77 20 171/92 H 94 L 08/05/17 15:11 08/05/17 15:11 08/05/17 15:11 08/05/17 15:11 08/05/17 15:11 Intake and Output: 08/05/17 08/05/17 06:59 18:59 Intake Total 1340 1560 Balance 1340 1560 - Medications Medications: Current Medications Clonidine HCl (Catapres) 0.1 mg PO Q4H PRN PRN Reason: Symptoms of alcohol withdrawl Last Admin: 08/05/17 16:10 Dose: 0.1 mg Folic Acid (Folic Acid) 1 mg PO DAILY [facility] Last Admin: 08/05/17 09:28 Dose: 1 mg Gabapentin (Neurontin) 100 mg PO TID [facility] Last Admin: 08/05/17 17:15 Dose: 100 mg Lactated Ringer's (Lactated Ringer's) 1,000 mls @ 200 mls/hr IV .Q5H [facility] Last Admin: 08/05/17 15:06 Dose: 200 mls/hr Meropenem 1 gm/ Sodium (Chloride) 100 mls @ 100 mls/hr IVPB Q8 [facility] Last Admin: 08/05/17 15:00 Dose: 100 mls/hr Lorazepam (Ativan) 1 mg PO Q6 PRN PRN Reason: Symptoms of alcohol withdrawl Last Admin: 08/01/17 16:49 Dose: 1 mg Magnesium Oxide (Mag-Ox) 400 mg PO BID [facility] Last Admin: 08/04/17 10:25 Dose: 400 mg Multivitamins (Hexavitamin) 1 tab PO DAILY [facility] Last Admin: 08/04/17 09:47 Dose: 1 tab Nitrofurantoin Macrocrystals (Macrobid) 100 mg PO Q12H [facility] Last Admin: 08/04/17 05:34 Dose: 100 mg Pantoprazole Sodium (Protonix Ec Tab) 40 mg PO DAILY [facility] Last Admin: 08/05/17 09:39 Dose: 40 mg Saccharomyces Boulardii (Florastor) 250 mg PO BID [facility] Last Admin: 08/05/17 17:15 Dose: 250 mg Sertraline HCl (Zoloft) 100 mg PO DAILY [facility] Last Admin: 08/05/17 10:39 Dose: 100 mg Thiamine HCl (Vitamin B1 Tab) 100 mg PO DAILY [facility] Last Admin: 08/05/17 09:28 Dose: 100 mg Trazodone HCl (Desyrel) 100 mg PO HS PRN PRN Reason: Insomnia Last Admin: 08/04/17 22:28 Dose: 100 mg - Labs Labs: 08/05/17 07:43 08/05/17 07:43 Attending/Attestation - Attestation I have personally seen and examined this patient.: Yes I have fully participated in the care of the patient.: Yes I have reviewed all pertinent clinical information, including history, physical exam and plan: Yes Notes (Text): This is late computer entry for 08/04/17. Patient seen, examined, and case discussed with day-time resident. Patient seen this morning on [facility]. Patient denies any diarrhea today. Patient reports uncomfortable abdominal pain. I reviewed with the patient her electrolytes are low and will need to replete. Patient's beta-hcg is negative. Following my evaluation, patient underwent CT abdomen and pelvis PO and IV on contrast. Radiologist, Dr. Norman called to discuss findings which included severe pancreatitis, pseudocysts, and phelgmonous changes. Upon finding these results, I spoke with patient's nurse, Alex as well as informed psychiatrist, Dr Jimenes that the patient needed to be transferred out the floors. Patient started in IV fluids, IV antibiotics, and NPO status. Electrolytes repleted by IV in light of CT scan findings. General surgery wildlife control operator consult Infectious disease wildlife control operator on consult. Assessment/Plan 1. Severe Pancreatitis Pseudocyst Phlegmon * Transfer from [facility] to General Medical Floor in light of CT findings 08/04/17 * CT abd/pelvis PO and IV contrast (08/04/17): findings consistent with acute pancreatitis associates with peripancreatic fluid and infiltration and pseudocyst formation abutting great curvature/posterior margin of the stomach. There are also large a amorphous phlegmonous component of inflammatory changes anterior to the pancreatic head and body (please see full report) * Surgery consult wildlife control operator, Dr. Lau, help appreciated * residential property manager has informed surgery resident wildlife control operator in regards to consult * ID consulted, Dr. Victor, help appreciated * Recommended to start Meropenem in lieu of Zosyn * Lipase 183 from 10/01 * Start LR at 200 cc/hour 2. Leukocytosis * Transfer from [facility] to General Medical Floor in light of CT findings 08/04/17 * CT abd/pelvis PO and IV contrast (08/04/17): findings consistent with acute pancreatitis associates with peripancreatic fluid and infiltration and pseudocyst formation abutting great curvature/posterior margin of the stomach. There are also large a amorphous phlegmonous component of inflammatory changes anterior to the pancreatic head and body (please see full report) * Will rule out infection - likely secondary to pancreatitis, improving, patient is afebrile * WBC 18.2 (recently was ~ 10 on admission at [facility] [place] prior to transfer); ESR : 88, CRP >15 * f/u UA: 2+ protein, 1+ bilirubin, 1+ LE, WBC 35, RBC 25-->urine culture - no growth * Urine culture (08/03/17): Normal skin stuart present * Blood culture (08/03/17): follow-up * Procalcitonin 0.38 * Chest xray PA and Lateral (08/04/17): no active disease * Given 2 dose of Macrobid until negative confirmed 3) Hypokalemia * Replete today and continue to monitor 4) Hypomagnesium * Replete today and continue to monitor 5) Transaminitis Alcohol Abuse Alcohol Hepatitis * AST/ALT 185/78 stab;e; Tbil 0.9 (down from 1.4) * Patient with hx of alcohol abuse and fatty liver dx per abd US done at [place]-->available in the paper chart. * Hepatitis negative * HIV nonreactive 6) Prophylactic measure * SCDS * Protonix 40mg PO daily * NPO * patient is ambulatory.
[2017-08-04 08:00] LABS: BASO % 0.3 % (0.0-2.0); EOS # 0.1 K/uL (0.0-0.7); EOS % 0.5 % (0.0-4.0); HEMOGLOBIN 10.5 g/dL (11.0-16.0); LYMPH # 1.9 K/uL (1.0-4.3); LYMPH % 13.3 % (20.0-40.0); MEAN CELL VOLUME 107.2 fL (81.0-99.0); MEAN CORPUSCULAR HEMOGLOBIN 37.7 pg (27.0-31.0); MEAN CORPUSCULAR HGB CONC 35.2 g/dL (33.0-37.0); MEAN PLATELET VOLUME 9.7 fL (7.2-11.7); MONO # 1.4 K/uL (0.0-0.8); MONO % 9.9 % (0.0-10.0); NEUT # 10.6 K/uL (1.8-7.0); RBC 2.8 Mil/uL (3.80-5.20); RED CELL DISTRIBUTION WIDTH 13.6 % (11.5-14.5); WHITE BLOOD COUNT 13.9 K/uL (4.8-10.8)
[2017-08-04 08:21] LABS: ALB/GLOB RATIO 0.9 (1.0-2.1); ALBUMIN 2.8 g/dL (3.5-5.0); ALT/SGPT 68 U/L (9-52); AST/SGOT 133 U/L (14-36); BLOOD UREA NITROGEN 8 mg/dL (7-17); CALCIUM 8.5 mg/dl (8.6-10.4); GFR AFRICAN-AMERICAN > 60; GFR NON-AFRICAN AMERICAN > 60; MAGNESIUM 1.2 mg/dL (1.6-2.3)
[2017-08-04] MEDS ORDERED: Iohexol 240 (50 ml) PO ONE (09:15)
[2017-08-04] MEDS: Multiple Vitamins Tab PO SCH (09:47)
[2017-08-04] MEDS ORDERED: Magnesium Oxide 400 mg Tab UD PO SCH (10:00)
[2017-08-04] MEDS ORDERED: Iodixanol 320 MG/ML 100 ML BOTTLE IV ONE (10:03)
[2017-08-04] MEDS: Potassium Chloride 20 mEq/15 ml LIQ UD PO SCH ×2 (10:25→13:02)
[2017-08-04] MEDS ORDERED: Piperacillin/Tazobact 3.375 GM in Sodium Chloride 0.9% 100 ML IVPB SCH (14:00)
--- NOTE | 2017-08-04 14:29 | CT ---
PROCEDURE: CT scan abdomen pelvis dated 08/04/2017 HISTORY: Abdominal pain. COMPARISON: No prior study available for comparison . TECHNIQUE: Contiguous axial images of the abdomen and pelvis performed following the oral and intravenous injection of approximately 100 cc Visipaque 320 contrast material. Was administered. No IV contrast given. Additional 2 dimensional sagittal and coronal reformats generated. . Radiation dose: Total exam DLP = 460.17 mGy-cm. This CT exam was performed using one or more of the following dose reduction techniques: Automated exposure control, adjustment of the mA and/or kV according to patient size, and/or use of iterative reconstruction technique. FINDINGS: LOWER THORAX: Minor scarring changes seen in the left lung base including the lingular region. No evidence of effusion or basilar pneumothorax. . Heart appears borderline -mildly enlarged. No significant pericardial effusion. LIVER: Liver is enlarged measuring approximately 21.5 cm in CC dimension. Moderate to significant diffuse fatty hepatic infiltration. No obvious hepatic mass collection or calcification. Portal and splenic veins are opacified. GALLBLADDER AND BILE DUCTS: Gallbladder is physiologically distended. No evidence of intraluminal gallbladder calculi. PANCREAS: The mid body posterior pancreas and pancreatic tail appear somewhat bulky and edematous with large amount of surrounding peripancreatic fluid/infiltration consistent with acute pancreatitis. Relatively large amount of fluid in the left upper quadrant of the abdomen. There is a discrete loculated appearing fluid collection (probably a peripancreatic pseudocyst) that abuts the posterior margin/ greater curvature of the stomach that measures approximately 7.46cc x 5.34t x 5.74ap cm. . There is a 2nd area of what could more heterogeneous fluid possibly representing a pancreatic phlegmon anterior to the main body of the pancreas, abutting a few loops of anteriorly located proximal loops of small bowel and the distal stomach as well. Fluid incompletely surrounds the spleen, extends into the left pararenal space and inferiorly along the left pericolic gutter. Correlation with serum amylase and lipase recommended. SPLEEN: Spleen is upper limits of normal measuring approximately over 12 cm in AP dimension. No obvious splenic mass or collection. ADRENALS: There are no adrenal lesions seen. KIDNEYS AND URETERS: Kidneys demonstrate symmetric nephrograms. No evidence of nephrolithiasis or hydronephrosis. BLADDER: Urinary bladder incompletely distended which presumably in part accounts for thick-walled appearance. REPRODUCTIVE: Uterus is unremarkable. Bilateral adnexal cystic changes are felt to be present. Followup nonemergent ultrasound could confirm if necessary. APPENDIX: Normal appearing appendix seen on coronal image number [id number] BOWEL: Evaluation of the bowel is somewhat limited due to incomplete opacification. The stomach is partially distended with food debris liquid and air. . A few proximal small bowel loops which abuts the aforementioned phlegmonous inflammatory pancreatic process exhibit wall thickening felt to be reactive. There may also be some wall thickening of the posterior margin of the distal stomach. No evidence of acute mechanical bowel obstruction with oral contrast material extending into the colon to the level of the rectum. There appears to be some wall thickening of the splenic flexure and proximal descending colon felt to be reactive secondary to the adjacent pancreatic inflammatory process. Multiple of right-sided colonic diverticula are present. No definitive radiographic evidence of acute diverticulitis. PERITONEUM: No gross free intraperitoneal air. LYMPH NODES: Unremarkable. No enlarged lymph nodes. VASCULATURE: Unremarkable. No aortic aneurysm. BONES: No fracture or destructive lesion. OTHER FINDINGS: None. IMPRESSION: Findings are consistent with acute pancreatitis associated with peripancreatic fluid and infiltration with pseudocyst formation abutting greater curvature/ posterior margin of the stomach. . There also large a amorphous phlegmonous component of inflammatory changes anterior to the pancreatic head and body abutting a few loops of proximal small bowel and posterior margin of the distal stomach. There is wall thickening of several of the loops of small bowel felt to be reactive and probably wall thickening of the distal stomach. Correlation with serum amylase and lipase. Hepatomegaly with marked fatty hepatic infiltration. . Borderline splenomegaly. There may also be some mild wall thickening of the splenic of flexure and proximal descending colon due to the adjacent pancreatic inflammatory process. Case discussed with Dr. Gómez at approximately 1:30 p.m. with written down and read back verification.
[2017-08-04] MEDS: Lactated Ringer's 1,000 ML IV SCH ×2 (15:39→18:23)
[2017-08-04 16:56] VITALS: RESP 20
[2017-08-04] MEDS ORDERED: Magnesium Sulfate 1 gm in D5W 1 GM/100 ML BAG IVPB SCH (17:45)
[2017-08-04] MEDS: Magnesium Sulfate 1 gm in D5W 1 GM/100 ML BAG IVPB SCH ×3 (18:22→21:44)
--- NOTE | 2017-08-04 18:31 | CP.PCM.CON ---
History of Present Illness - History of Present Illness History of Present Illness: Surgery 37 year old female with PMH of alcoholic hepatitis, hx recent pancreatitis and UTI transfered from [facility] to [facility]. Reports abd pain started 1 week ago. Pain is located on epigastric area, and LUQ. Non radiating. Associated with non bloody non bilious vomiting and watery diarrhea. No change stool color or dark urine. Pt reports that this is the first time having these symptoms. Pt is a heavy EtOH drinker. Drinks daily and smokes 3 cigarettes a day. Per medical records this has been going on for quite some time and she has been to [facility] and was told that she was damaging her liver from drinking. She denied chest pain, shortness of breath, headaches, changes in vision, cough , pain/swelling in the extremities. Found to have leukocytosis 18k and CT abd shows pancreatitis and [id number] loculated cystic lesion likely pancreatic pseudocyst in distal pancreas and large phlegmon anterior to pancreas. SS: smoker, heavy drinker, no drugs PSH: denies PMH : pancreatitis, EtOH abuse, psychiatric disorder Review of Systems - Review of Systems Review of Systems: See HPi Past Patient History - Infectious Disease Hx of Infectious Diseases: None - Past Social History Smoking Status: Light Smoker < 10 Cigarettes Daily - CARDIAC Hx Cardiac Disorders: No - PULMONARY Hx Respiratory Disorders: No - NEUROLOGICAL Hx Neurological Disorder: Yes Other/Comment: PERIPHERAL NEUROPATHY - HEENT Hx HEENT Problems: No - RENAL Hx Chronic Kidney Disease: No - ENDOCRINE/METABOLIC Hx Endocrine Disorders: No - HEMATOLOGICAL/ONCOLOGICAL Hx Blood Disorders: No - INTEGUMENTARY Hx Dermatological Problems: No - MUSCULOSKELETAL/RHEUMATOLOGICAL Hx Musculoskeletal Disorders: No - GASTROINTESTINAL Hx Pancreatitis: Yes - GENITOURINARY/GYNECOLOGICAL Hx Genitourinary Disorders: No - PSYCHIATRIC Hx Substance Use: Yes - SURGICAL HISTORY Hx Surgeries: No - ANESTHESIA Hx Anesthesia: No Meds Allergies/Adverse Reactions: Allergies Allergy/AdvReac Type Severity Reaction Status Date / Time No Known Allergies Allergy Unverified 07/31/17 01:37 - Medications Medications: Current Medications Clonidine HCl (Catapres) 0.1 mg PO Q4H PRN PRN Reason: Symptoms of alcohol withdrawl Folic Acid (Folic Acid) 1 mg PO DAILY ON [facility] OF [facility] Last Admin: 08/04/17 09:47 Dose: 1 mg Gabapentin (Neurontin) 100 mg PO TID ON [facility] OF [facility] Last Admin: 08/04/17 17:57 Dose: 100 mg Lactated Ringer's (Lactated Ringer's) 1,000 mls @ 200 mls/hr IV .Q5H ON [facility] OF [facility] Last Admin: 08/04/17 15:39 Dose: 200 mls/hr Potassium Chloride (Potassium Chloride 20 Meq/100 Ml) 20 meq in 100 mls @ 50 mls/hr IVPB ONCE ONE Stop: 08/04/17 19:51 Magnesium Sulfate/Dextrose (Magnesium Sulfate 1 Gm/100 Ml D5w) 1 gm in 100 mls @ 200 mls/hr IVPB Q30M ON [facility] OF [facility] Stop: 08/04/17 21:59 Meropenem 1 gm/ Sodium (Chloride) 100 mls @ 100 mls/hr IVPB Q8 ON [facility] OF [facility] Lorazepam (Ativan) 1 mg PO Q6 PRN PRN Reason: Symptoms of alcohol withdrawl Last Admin: 08/01/17 16:49 Dose: 1 mg Magnesium Oxide (Mag-Ox) 400 mg PO BID ON [facility] Last Admin: 08/04/17 10:25 Dose: 400 mg Multivitamins (Hexavitamin) 1 tab PO DAILY [facility] Last Admin: 08/04/17 09:47 Dose: 1 tab Nitrofurantoin Macrocrystals (Macrobid) 100 mg PO Q12H ON [facility] Last Admin: 08/04/17 05:34 Dose: 100 mg Pantoprazole Sodium (Protonix Ec Tab) 40 mg PO DAILY ON [facility] Sertraline HCl (Zoloft) 100 mg PO DAILY [facility] Last Admin: 08/04/17 09:47 Dose: 100 mg Thiamine HCl (Vitamin B1 Tab) 100 mg PO DAILY [facility] Last Admin: 08/04/17 09:47 Dose: 100 mg Trazodone HCl (Desyrel) 100 mg PO HS PRN PRN Reason: Insomnia Last Admin: 08/03/17 22:05 Dose: 100 mg Physical Exam - Constitutional Appears: No Acute Distress - Head Exam Head Exam: ATRAUMATIC, NORMAL INSPECTION, NORMOCEPHALIC - Eye Exam Eye Exam: EOMI, Normal appearance, PERRL. absent: Scleral icterus Pupil Exam: NORMAL ACCOMODATION, PERRL - ENT Exam ENT Exam: Mucous Membranes Moist, Normal Exam - Neck Exam Neck exam: Positive for: Normal Inspection - Respiratory Exam Respiratory Exam: Clear to Auscultation Bilateral, NORMAL BREATHING PATTERN - Cardiovascular Exam Cardiovascular Exam: REGULAR RHYTHM - GI/Abdominal Exam GI & Abdominal Exam: Normal Bowel Sounds, Soft. absent: Tenderness - Extremities Exam Extremities exam: Positive for: full ROM, normal inspection - Back Exam Back exam: NORMAL INSPECTION - Neurological Exam Neurological exam: Alert, CN II-XII Intact, Normal Gait, Oriented x3, Reflexes Normal - Psychiatric Exam Psychiatric exam: Normal Affect, Normal Mood - Skin Skin Exam: Dry, Intact, Normal Color, Warm Results - Vital Signs Recent Vital Signs: Last Vital Signs Temp 97.6 F 08/04/17 14:55 Pulse 104 H 08/04/17 14:55 Resp 20 08/04/17 14:55 BP 113/68 08/04/17 14:55 Pulse Ox 97 08/04/17 14:55 - Labs Result Diagrams: 08/04/17 07:25 08/04/17 07:25 Labs: Laboratory Results - last 24 hr 08/03/17 08/03/17 08/03/17 17:46 17:46 17:46 WBC RBC Hgb Hct MCV MCH MCHC RDW Plt Count MPV Neut % (Auto) Lymph % (Auto) [place] % (Auto) Eos % (Auto) Baso % (Auto) Neut # (Auto) Lymph # (Auto) [place] # (Auto) Eos # (Auto) Baso # (Auto) ESR 88 H Sodium Potassium Chloride Carbon Dioxide Anion Gap BUN Creatinine Est GFR ( Amer) Est GFR (Non-Af Amer) Random Glucose Calcium Magnesium Total Bilirubin AST ALT Alkaline Phosphatase Total Protein Albumin Globulin Albumin/Globulin Ratio Procalcitonin 0.38 TSH 3rd Generation Beta HCG, Quant Hepatitis A IgM Ab Negative Hep Bs Antigen Negative Hep B Core IgM Ab Negative Hepatitis C Antibody Negative HIV 1&2 Antibody Screen 08/03/17 08/03/17 08/03/17 17:46 17:46 17:46 WBC RBC Hgb Hct MCV MCH MCHC RDW Plt Count MPV Neut % (Auto) Lymph % (Auto) [place] % (Auto) Eos % (Auto) Baso % (Auto) Neut # (Auto) Lymph # (Auto) [place] # (Auto) Eos # (Auto) Baso # (Auto) ESR Sodium Potassium Chloride Carbon Dioxide Anion Gap BUN Creatinine Est GFR ( Amer) Est GFR (Non-Af Amer) Random Glucose Calcium Magnesium Total Bilirubin AST ALT Alkaline Phosphatase Total Protein Albumin Globulin Albumin/Globulin Ratio Procalcitonin TSH 3rd Generation 4.18 Beta HCG, Quant < 2.39 Hepatitis A IgM Ab Hep Bs Antigen Hep B Core IgM Ab Hepatitis C Antibody HIV 1&2 Antibody Screen Negative 08/04/17 08/04/17 07:25 07:25 WBC 13.9 H RBC 2.80 L Hgb 10.5 L Hct 30.0 L MCV 107.2 H MCH 37.7 H MCHC 35.2 RDW 13.6 Plt Count 363 MPV 9.7 Neut % (Auto) 76.0 H Lymph % (Auto) 13.3 L [place] % (Auto) 9.9 Eos % (Auto) 0.5 Baso % (Auto) 0.3 Neut # (Auto) 10.6 H Lymph # (Auto) 1.9 [place] # (Auto) 1.4 H Eos # (Auto) 0.1 Baso # (Auto) 0.0 ESR 102 H Sodium 136 Potassium 2.9 L Chloride 93 L Carbon Dioxide 33 H Anion Gap 12 BUN 8 Creatinine 0.6 L Est GFR ( Amer) > 60 Est GFR (Non-Af Amer) > 60 Random Glucose 84 Calcium 8.5 L Magnesium 1.2 L Total Bilirubin 0.9 AST 133 H D ALT 68 H Alkaline Phosphatase 279 H D Total Protein 5.9 L Albumin 2.8 L Globulin 3.1 Albumin/Globulin Ratio 0.9 L Procalcitonin TSH 3rd Generation Beta HCG, Quant Hepatitis A IgM Ab Hep Bs Antigen Hep B Core IgM Ab Hepatitis C Antibody HIV 1&2 Antibody Screen Assessment & Plan - Assessment and Plan (Free Text) Assessment: Alcoholic Pancreatitis and pancreatic pseudocyst CT abd shows pancreatitis and [id number] loculated cystic lesion likely pancreatic pseudocyst in distal pancreas and large phlegmon anterior to pancreas. -NPO -IVF -ABX -GI on board -Expectant management for 3 month: Majority of pancreatic pseudocyst resolves spontaneously -No emergent surgical intervention at this time: Surgery only for persistent sx over 3 months or enlarging. LUIZ Lau
[2017-08-04] MEDS ORDERED: Potassium Chloride 20 mEq/15 ml LIQ UD PO ONE (20:27)
[2017-08-04] MEDS: Meropenem 1 GM in Sodium Chloride 0.9% 100 ML IVPB SCH (22:28)
[2017-08-05] MEDS: Lactated Ringer's 1,000 ML IV SCH ×5 (00:49→21:17)
[2017-08-05] MEDS: Meropenem 1 GM in Sodium Chloride 0.9% 100 ML IVPB SCH ×3 (05:43→21:22)
[2017-08-05 08:10] LABS: ALB/GLOB RATIO 0.8 (1.0-2.1); ALBUMIN 2.6 g/dL (3.5-5.0); ALT/SGPT 62 U/L (9-52); AST/SGOT 112 U/L (14-36); BLOOD UREA NITROGEN 6 mg/dL (7-17); CALCIUM 8.1 mg/dl (8.6-10.4); GFR AFRICAN-AMERICAN > 60; GFR NON-AFRICAN AMERICAN > 60; MAGNESIUM 1.8 mg/dL (1.6-2.3)
[2017-08-05 08:21] LABS: BASO # 0.1 K/uL (0.0-0.2); BASO % 0.5 % (0.0-2.0); EOS # 0.1 K/uL (0.0-0.7); EOS % 0.6 % (0.0-4.0); LYMPH # 1.9 K/uL (1.0-4.3); LYMPH % 16.3 % (20.0-40.0); MEAN CELL VOLUME 108.3 fL (81.0-99.0); MEAN CORPUSCULAR HGB CONC 34.2 g/dL (33.0-37.0); MEAN PLATELET VOLUME 9.6 fL (7.2-11.7); MONO # 1.1 K/uL (0.0-0.8); MONO % 9.6 % (0.0-10.0); NEUT # 8.6 K/uL (1.8-7.0); RBC 2.69 Mil/uL (3.80-5.20); RED CELL DISTRIBUTION WIDTH 13.9 % (11.5-14.5); WHITE BLOOD COUNT 11.9 K/uL (4.8-10.8)
--- NOTE | 2017-08-05 09:01 | RAD ---
HISTORY: eleavted wbc r/o pneumonia COMPARISON: No prior. TECHNIQUE: Chest PA and lateral FINDINGS: LUNGS: No active pulmonary disease. PLEURA: No significant pleural effusion identified. No pneumothorax apparent. CARDIOVASCULAR: Normal. OSSEOUS STRUCTURES: No significant abnormalities. VISUALIZED UPPER ABDOMEN: Normal. OTHER FINDINGS: None. IMPRESSION: No active disease.
[2017-08-05] MEDS ORDERED: Pantoprazole 40 mg EC Tab PO SCH (10:00)
--- NOTE | 2017-08-05 12:03 | CP.PCM.PN ---
Subjective - Date & Time of Evaluation Date of Evaluation: 08/05/17 Time of Evaluation: 07:00 - Subjective Subjective: General surgery progress note for Dr. Lau-Rosie Hightower, PGY-1 Pt S & E at bedside this AM. Pt sleeping, arousable to verbal stimuli- not answering most questions- sleepy. Objective - Vital Signs/Intake and Output Vital Signs (last 24 hours): Temp Pulse Resp BP Pulse Ox 98.8 F 89 20 139/80 96 08/05/17 09:06 08/05/17 09:06 08/05/17 09:06 08/05/17 09:06 08/05/17 09:06 Intake and Output: 08/05/17 08/05/17 06:59 18:59 Intake Total 1340 Balance 1340 - Medications Medications: Current Medications Clonidine HCl (Catapres) 0.1 mg PO Q4H PRN PRN Reason: Symptoms of alcohol withdrawl Folic Acid (Folic Acid) 1 mg PO DAILY [facility] Last Admin: 08/05/17 09:28 Dose: 1 mg Gabapentin (Neurontin) 100 mg PO TID [facility] Last Admin: 08/05/17 09:28 Dose: 100 mg Lactated Ringer's (Lactated Ringer's) 1,000 mls @ 200 mls/hr IV .Q5H [facility] Last Admin: 08/05/17 09:29 Dose: 200 mls/hr Meropenem 1 gm/ Sodium (Chloride) 100 mls @ 100 mls/hr IVPB Q8 [facility] Last Admin: 08/05/17 05:43 Dose: 100 mls/hr Lorazepam (Ativan) 1 mg PO Q6 PRN PRN Reason: Symptoms of alcohol withdrawl Last Admin: 08/01/17 16:49 Dose: 1 mg Magnesium Oxide (Mag-Ox) 400 mg PO BID [facility] Last Admin: 08/04/17 10:25 Dose: 400 mg Multivitamins (Hexavitamin) 1 tab PO DAILY [facility] Last Admin: 08/04/17 09:47 Dose: 1 tab Nitrofurantoin Macrocrystals (Macrobid) 100 mg PO Q12H [facility] Last Admin: 08/04/17 05:34 Dose: 100 mg Pantoprazole Sodium (Protonix Ec Tab) 40 mg PO DAILY [facility] Last Admin: 08/05/17 09:39 Dose: 40 mg Pneumococcal Polyvalent Vaccine (Pneumovax 23 Vaccine) 0.5 ml IM .ONCE ONE Stop: 08/07/17 10:01 Saccharomyces Boulardii (Florastor) 250 mg PO BID [facility] Sertraline HCl (Zoloft) 100 mg PO DAILY [facility] Last Admin: 08/05/17 10:39 Dose: 100 mg Thiamine HCl (Vitamin B1 Tab) 100 mg PO DAILY [facility] Last Admin: 08/05/17 09:28 Dose: 100 mg Trazodone HCl (Desyrel) 100 mg PO HS PRN PRN Reason: Insomnia Last Admin: 08/04/17 22:28 Dose: 100 mg - Labs Labs: 08/05/17 07:43 08/05/17 07:43 - Constitutional Appears: Non-toxic, No Acute Distress - Head Exam Head Exam: ATRAUMATIC, NORMAL INSPECTION, NORMOCEPHALIC - Eye Exam Eye Exam: EOMI, Normal appearance - ENT Exam ENT Exam: Mucous Membranes Moist, Normal Exam - Neck Exam Neck Exam: Full ROM, Normal Inspection - Respiratory Exam Respiratory Exam: NORMAL BREATHING PATTERN - Cardiovascular Exam Cardiovascular Exam: REGULAR RHYTHM, +S1, +S2 - GI/Abdominal Exam GI & Abdominal Exam: Guarding (epigastric), Soft, Tenderness (epigastric). absent: Distended, Firm - Extremities Exam Extremities Exam: Normal Inspection - Neurological Exam Neurological Exam: absent: Awake (sleeping- arousable) - Psychiatric Exam Psychiatric exam: Normal Affect, Normal Mood - Skin Skin Exam: Dry, Intact, Normal Color, Warm Assessment and Plan - Assessment and Plan (Free Text) Assessment: 37F w/ETOH pancreatitis and pancreatic pseudocyst Plan: Cont NPO Cont IVF COnt ABx GI following No surgical intervention at this time Aurelio follow Will DW attending Katja, PGY-1
[2017-08-05] MEDS: Saccharomyces Boulardi 250 mg Cap PO SCH ×2 (12:43→17:15)
--- NOTE | 2017-08-05 13:08 | CP.PCM.CON ---
<Mikey Merida - Last Filed: 08/05/17 15:25> History of Present Illness - History of Present Illness History of Present Illness: GI Consult Note: 37 F with past medical history ETOH abuse presents following being transferred here from [facility] to psychiatry unit here for depression and visual hallucination, currently with symptoms of severe abdominal pain. Patient states that this abdominal pain first started 10 days ago when she initially went to [facility]. The pain is epigastric, intermittent, radiates to the LUQ, and 10/10 in severity at its worse. The pain is associated with multiple bouts of non bloody diarrhea daily. She denies any nausea or vomiting. Pt denies this type of pain ever occurring before. Pt does admit to heavy drinking, 1 pint of vodka daily for the past 1.5 years. She does states that she has gone to the hospital before for chest pain but never for abdominal pain, denies any hx of pancreatitis. Initially pt was found to have wbc of 18, transaminitis, T. bili 1.4, lipase wnl, CT abd & pelvis showed - acute pancreatitis associated with peripancreatic fluid and infiltration with pseudocyst formation roughly [id number] , a large amorphous phlegmonous component of inflammatory changes anterior to pancreatic head and body, wall thickening of several loops of small bowel and stomach, hepatomegaly with fatty infiltration , mild splenomegaly, mild wall thickening of splenic flexure and proximal descending colon. GI consulted for pancreatitis and pseudocyst. 12 Point ROS performed and negative other than stated above. PMH: depression PSH: denies Med: Refer to [facility] ALL: [facility] SH: Unemployed, admits to drinking 1 pint of vodka for 1.5 years, smokes half PPD for >20 years, denies any recreational drugs FH: Denies any family hx of GI malignancies Endo Hx: Denies having any prior EGD or colonoscopy. Review of Systems - Review of Systems All systems: reviewed and no additional remarkable complaints except Past Patient History - Infectious Disease Hx of Infectious Diseases: None - Past Medical History & Family History Past Medical History?: Yes - Past Social History Smoking Status: Light Smoker < 10 Cigarettes Daily - CARDIAC Hx Cardiac Disorders: No - PULMONARY Hx Respiratory Disorders: No - NEUROLOGICAL Hx Neurological Disorder: Yes Other/Comment: PERIPHERAL NEUROPATHY - HEENT Hx HEENT Problems: No - RENAL Hx Chronic Kidney Disease: No - ENDOCRINE/METABOLIC Hx Endocrine Disorders: No - HEMATOLOGICAL/ONCOLOGICAL Hx Blood Disorders: No - INTEGUMENTARY Hx Dermatological Problems: No - MUSCULOSKELETAL/RHEUMATOLOGICAL Hx Musculoskeletal Disorders: No - GASTROINTESTINAL Hx Pancreatitis: Yes - GENITOURINARY/GYNECOLOGICAL Hx Genitourinary Disorders: No - PSYCHIATRIC Hx Substance Use: Yes - SURGICAL HISTORY Hx Surgeries: No - ANESTHESIA Hx Anesthesia: No Meds Allergies/Adverse Reactions: Allergies Allergy/AdvReac Type Severity Reaction Status Date / Time No Known Allergies Allergy Unverified 07/31/17 01:37 - Medications Medications: Current Medications Clonidine HCl (Catapres) 0.1 mg PO Q4H PRN PRN Reason: Symptoms of alcohol withdrawl Folic Acid (Folic Acid) 1 mg PO DAILY [facility] Last Admin: 08/05/17 09:28 Dose: 1 mg Gabapentin (Neurontin) 100 mg PO TID [facility] Last Admin: 08/05/17 09:28 Dose: 100 mg Lactated Ringer's (Lactated Ringer's) 1,000 mls @ 200 mls/hr IV .Q5H [facility] Last Admin: 08/05/17 09:29 Dose: 200 mls/hr Meropenem 1 gm/ Sodium (Chloride) 100 mls @ 100 mls/hr IVPB Q8 [facility] Last Admin: 08/05/17 05:43 Dose: 100 mls/hr Lorazepam (Ativan) 1 mg PO Q6 PRN PRN Reason: Symptoms of alcohol withdrawl Last Admin: 08/01/17 16:49 Dose: 1 mg Magnesium Oxide (Mag-Ox) 400 mg PO BID [facility] Last Admin: 08/04/17 10:25 Dose: 400 mg Multivitamins (Hexavitamin) 1 tab PO DAILY [facility] Last Admin: 08/04/17 09:47 Dose: 1 tab Nitrofurantoin Macrocrystals (Macrobid) 100 mg PO Q12H [facility] Last Admin: 08/04/17 05:34 Dose: 100 mg Pantoprazole Sodium (Protonix Ec Tab) 40 mg PO DAILY [facility] Last Admin: 08/05/17 09:39 Dose: 40 mg Pneumococcal Polyvalent Vaccine (Pneumovax 23 Vaccine) 0.5 ml IM .ONCE ONE Stop: 08/07/17 10:01 Saccharomyces Boulardii (Florastor) 250 mg PO BID [facility] Last Admin: 08/05/17 12:43 Dose: 250 mg Sertraline HCl (Zoloft) 100 mg PO DAILY [facility] Last Admin: 08/05/17 10:39 Dose: 100 mg Thiamine HCl (Vitamin B1 Tab) 100 mg PO DAILY [facility] Last Admin: 08/05/17 09:28 Dose: 100 mg Trazodone HCl (Desyrel) 100 mg PO HS PRN PRN Reason: Insomnia Last Admin: 08/04/17 22:28 Dose: 100 mg Physical Exam - Constitutional Appears: No Acute Distress - Head Exam Head Exam: ATRAUMATIC, NORMOCEPHALIC - Eye Exam Eye Exam: EOMI - ENT Exam ENT Exam: Mucous Membranes Moist - Respiratory Exam Respiratory Exam: Clear to Auscultation Bilateral. absent: Rales, Wheezes - Cardiovascular Exam Cardiovascular Exam: RRR, +S1, +S2 - GI/Abdominal Exam GI & Abdominal Exam: Normal Bowel Sounds, Soft. absent: Distended, Tenderness - Extremities Exam Extremities exam: Negative for: calf tenderness, tenderness - Neurological Exam Neurological exam: Alert, Oriented x3 - Psychiatric Exam Psychiatric exam: Normal Affect, Normal Mood - Skin Skin Exam: Dry, Intact, Warm Results - Vital Signs Recent Vital Signs: Last Vital Signs Temp 98.8 F 08/05/17 09:06 Pulse 89 08/05/17 09:06 Resp 20 08/05/17 09:06 BP 139/80 08/05/17 09:06 Pulse Ox 96 08/05/17 09:06 - Labs Result Diagrams: 08/05/17 07:43 08/05/17 07:43 Labs: Laboratory Results - last 24 hr 08/05/17 08/05/17 07:43 07:43 WBC 11.9 H RBC 2.69 L Hgb 10.0 L Hct 29.1 L MCV 108.3 H MCH 37.0 H MCHC 34.2 RDW 13.9 Plt Count 416 H MPV 9.6 Neut % (Auto) 73.0 Lymph % (Auto) 16.3 L Mason % (Auto) 9.6 Eos % (Auto) 0.6 Baso % (Auto) 0.5 Neut # (Auto) 8.6 H Lymph # (Auto) 1.9 Mason # (Auto) 1.1 H Eos # (Auto) 0.1 Baso # (Auto) 0.1 Sodium 137 Potassium 4.0 Chloride 101 Carbon Dioxide 31 H Anion Gap 10 BUN 6 L Creatinine 0.6 L Est GFR ( Amer) > 60 Est GFR (Non-Af Amer) > 60 Random Glucose 83 Calcium 8.1 L Phosphorus 4.0 Magnesium 1.8 Total Bilirubin 0.7 AST 112 H ALT 62 H Alkaline Phosphatase 246 H Total Protein 5.7 L Albumin 2.6 L Globulin 3.1 Albumin/Globulin Ratio 0.8 L Assessment & Plan - Assessment and Plan (Free Text) Assessment: 37 F with past medical history ETOH abuse presents following being transferred here from [facility] to psychiatry unit here for depression and visual hallucination. Pt complaining of severe abdominal pain with diarrhea, found to have a presumed alcoholic hepatitis which is now resolving, and an acute pancreatitis with pseudocyst formation. 1. Acute pancreatitis 2. Presumed alcoholic hepatitis - now resolving - CLD as tolerated - Continue IV fluids with LR @ 200 - Cont IV antibiotics - Bigg - Follow up stool work up for diarrhea - Continue Protonix 40mg PO daily - Anti-emetics PRN - Pain control - No intervention for pseudocyst required at this time as this is likely in acute phase and most resolve on their own - Strongly encouraged abstinence of both smoking and drinking - Will cont to monitor patients clinical course Case and plan was reviewed and discussed in detail with Dr James. <Erika ARREAGA,[facility] - Last Filed: 08/05/17 16:12> Meds - Medications Medications: Current Medications Clonidine HCl (Catapres) 0.1 mg PO Q4H PRN PRN Reason: Symptoms of alcohol withdrawl Folic Acid (Folic Acid) 1 mg PO DAILY [facility] Last Admin: 08/05/17 09:28 Dose: 1 mg Gabapentin (Neurontin) 100 mg PO TID [facility] Last Admin: 08/05/17 15:00 Dose: 100 mg Lactated Ringer's (Lactated Ringer's) 1,000 mls @ 200 mls/hr IV .Q5H [facility] Last Admin: 08/05/17 15:06 Dose: 200 mls/hr Meropenem 1 gm/ Sodium (Chloride) 100 mls @ 100 mls/hr IVPB Q8 [facility] Last Admin: 08/05/17 15:00 Dose: 100 mls/hr Lorazepam (Ativan) 1 mg PO Q6 PRN PRN Reason: Symptoms of alcohol withdrawl Last Admin: 08/01/17 16:49 Dose: 1 mg Magnesium Oxide (Mag-Ox) 400 mg PO BID [facility] Last Admin: 08/04/17 10:25 Dose: 400 mg Multivitamins (Hexavitamin) 1 tab PO DAILY [facility] Last Admin: 08/04/17 09:47 Dose: 1 tab Nitrofurantoin Macrocrystals (Macrobid) 100 mg PO Q12H [facility] Last Admin: 08/04/17 05:34 Dose: 100 mg Pantoprazole Sodium (Protonix Ec Tab) 40 mg PO DAILY [facility] Last Admin: 08/05/17 09:39 Dose: 40 mg Pneumococcal Polyvalent Vaccine (Pneumovax 23 Vaccine) 0.5 ml IM .ONCE ONE Stop: 08/07/17 10:01 Saccharomyces Boulardii (Florastor) 250 mg PO BID [facility] Last Admin: 08/05/17 12:43 Dose: 250 mg Sertraline HCl (Zoloft) 100 mg PO DAILY [facility] Last Admin: 08/05/17 10:39 Dose: 100 mg Thiamine HCl (Vitamin B1 Tab) 100 mg PO DAILY [facility] Last Admin: 08/05/17 09:28 Dose: 100 mg Trazodone HCl (Desyrel) 100 mg PO HS PRN PRN Reason: Insomnia Last Admin: 08/04/17 22:28 Dose: 100 mg Results - Vital Signs Recent Vital Signs: Last Vital Signs Temp 98.8 F 08/05/17 09:06 Pulse 89 08/05/17 09:06 Resp 20 08/05/17 09:06 BP 139/80 08/05/17 09:06 Pulse Ox 96 08/05/17 09:06 - Labs Result Diagrams: 08/05/17 07:43 08/05/17 07:43 Labs: Laboratory Results - last 24 hr 08/05/17 08/05/17 07:43 07:43 WBC 11.9 H RBC 2.69 L Hgb 10.0 L Hct 29.1 L MCV 108.3 H MCH 37.0 H MCHC 34.2 RDW 13.9 Plt Count 416 H MPV 9.6 Neut % (Auto) 73.0 Lymph % (Auto) 16.3 L Mason % (Auto) 9.6 Eos % (Auto) 0.6 Baso % (Auto) 0.5 Neut # (Auto) 8.6 H Lymph # (Auto) 1.9 Mason # (Auto) 1.1 H Eos # (Auto) 0.1 Baso # (Auto) 0.1 Sodium 137 Potassium 4.0 Chloride 101 Carbon Dioxide 31 H Anion Gap 10 BUN 6 L Creatinine 0.6 L Est GFR ( Amer) > 60 Est GFR (Non-Af Amer) > 60 Random Glucose 83 Calcium 8.1 L Phosphorus 4.0 Magnesium 1.8 Total Bilirubin 0.7 AST 112 H ALT 62 H Alkaline Phosphatase 246 H Total Protein 5.7 L Albumin 2.6 L Globulin 3.1 Albumin/Globulin Ratio 0.8 L Attending/Attestation - Attestation I have personally seen and examined this patient.: Yes I have fully participated in the care of the patient.: Yes I have reviewed all pertinent clinical information: Yes Notes (Text): 08/05/17 16:08 Patient seen with GI fellow earlier today. This is a 37 yr old F with past medical history ETOH abuse and alcohol dependance admitted as a transfer from [facility] to psychiatry unit for depression and visual hallucination. Patient complaining of severe abdominal pain with diarrhea, found to have a presumed alcoholic hepatitis which is now resolving, and an acute pancreatitis with pseudocyst formation. No previous episodes of pancreatitis as per patient. As per patient she did not receive IV hydration or CT at outside facility. CT reviewed that shows pseudocyst around the pancreas. Will treat aggressively with hydration. Antibiotics for UTI. Will start clear liquid diet today and monitor progress. Strongly encouraged abstinence of both smoking and drinking. Supportive care. Stool infectious work up to be sent. No GI intervention currently indicated in setting of acute pancreatitis. DVT prophylaxis
--- NOTE | 2017-08-05 15:02 | CP.PCM.PN ---
<Dane Fan - Last Filed: 08/05/17 17:41> Subjective - Date & Time of Evaluation Date of Evaluation: 08/05/17 Time of Evaluation: 08:02 - Subjective Subjective: Patient was seen and examined at bedside this morning. Patient reports abdominal pain only when positioning herself in certain positions. Patient is tolerating her diet. Patient denies urinary complaints. Patient denies ay chest pain, palpitations, syncopal episodes or any other complaints. Objective - Vital Signs/Intake and Output Vital Signs (last 24 hours): Temp Pulse Resp BP Pulse Ox 98.8 F 89 20 139/80 96 08/05/17 09:06 08/05/17 09:06 08/05/17 09:06 08/05/17 09:06 08/05/17 09:06 Intake and Output: 08/05/17 08/05/17 06:59 18:59 Intake Total 1340 Balance 1340 - Medications Medications: Current Medications Clonidine HCl (Catapres) 0.1 mg PO Q4H PRN PRN Reason: Symptoms of alcohol withdrawl Folic Acid (Folic Acid) 1 mg PO DAILY [facility] Last Admin: 08/05/17 09:28 Dose: 1 mg Gabapentin (Neurontin) 100 mg PO TID [facility] Last Admin: 08/05/17 09:28 Dose: 100 mg Lactated Ringer's (Lactated Ringer's) 1,000 mls @ 200 mls/hr IV .Q5H [facility] Last Admin: 08/05/17 09:29 Dose: 200 mls/hr Meropenem 1 gm/ Sodium (Chloride) 100 mls @ 100 mls/hr IVPB Q8 [facility] Last Admin: 08/05/17 05:43 Dose: 100 mls/hr Lorazepam (Ativan) 1 mg PO Q6 PRN PRN Reason: Symptoms of alcohol withdrawl Last Admin: 08/01/17 16:49 Dose: 1 mg Magnesium Oxide (Mag-Ox) 400 mg PO BID [facility] Last Admin: 08/04/17 10:25 Dose: 400 mg Multivitamins (Hexavitamin) 1 tab PO DAILY [facility] Last Admin: 08/04/17 09:47 Dose: 1 tab Nitrofurantoin Macrocrystals (Macrobid) 100 mg PO Q12H [facility] Last Admin: 08/04/17 05:34 Dose: 100 mg Pantoprazole Sodium (Protonix Ec Tab) 40 mg PO DAILY [facility] Last Admin: 08/05/17 09:39 Dose: 40 mg Pneumococcal Polyvalent Vaccine (Pneumovax 23 Vaccine) 0.5 ml IM .ONCE ONE Stop: 08/07/17 10:01 Saccharomyces Boulardii (Florastor) 250 mg PO BID [facility] Last Admin: 08/05/17 12:43 Dose: 250 mg Sertraline HCl (Zoloft) 100 mg PO DAILY [facility] Last Admin: 08/05/17 10:39 Dose: 100 mg Thiamine HCl (Vitamin B1 Tab) 100 mg PO DAILY [facility] Last Admin: 08/05/17 09:28 Dose: 100 mg Trazodone HCl (Desyrel) 100 mg PO HS PRN PRN Reason: Insomnia Last Admin: 08/04/17 22:28 Dose: 100 mg - Labs Labs: 08/05/17 07:43 08/05/17 07:43 - Head Exam Head Exam: ATRAUMATIC, NORMAL INSPECTION, NORMOCEPHALIC - Eye Exam Eye Exam: EOMI, Normal appearance, PERRL. absent: Periorbital tenderness Pupil Exam: NORMAL ACCOMODATION, PERRL. absent: Irregular, Unequal - ENT Exam ENT Exam: Mucous Membranes Moist, Normal Oropharynx - Neck Exam Neck Exam: absent: Lymphadenopathy, Thyromegaly - Respiratory Exam Respiratory Exam: Clear to Ausculation Bilateral, NORMAL BREATHING PATTERN. absent: Prolonged Expiratory Phase, Respiratory Distress - Cardiovascular Exam Cardiovascular Exam: REGULAR RHYTHM, RRR, +S1, +S2. absent: Gallop, Rubs - GI/Abdominal Exam GI & Abdominal Exam: Soft, Normal Bowel Sounds. absent: Rigid, Hyperactive Bowel Sounds - Extremities Exam Extremities Exam: Full ROM, Normal Inspection. absent: Pedal Edema - Back Exam Back Exam: NORMAL INSPECTION. absent: CVA tenderness (L), CVA tenderness (R), paraspinal tenderness - Neurological Exam Neurological Exam: Alert, Awake, CN II-XII Intact, Oriented x3 - Psychiatric Exam Psychiatric exam: Normal Affect, Normal Mood - Skin Skin Exam: Dry, Intact, Normal Color Assessment and Plan - Assessment and Plan (Free Text) Plan: Pancreatitis * CT abd/pelvis 08/04: findings consistent with acute pancreatitis associates with peripancreatic fluid and infiltration and pseudocyst formation abutting great curvature/posterior margin of the stomach. There are also large a amporphus phlegmonous component of inflammatory changes anterior to the pancreatic head and body (please see full report) * Surgery consulted, Dr. Lau, rec's appreciated * ID consulted, Dr. Vicotr, rec's appreciated * Start Meropenem 1gm IVPB every 8hours * Lipase 183 from 10/01 * Continue LR at 200 cc/hour * Advanced to liquid diet by GI. Will monitor and advance as tolerated. Leukocytosis * Will rule out infection - likely secondary to pancreatitis, improving, patient is afebrile * WBC 11.9 Today(recently was ~ 10 on admission at [facility]); ESR: 88, CRP > 15 * UA: 2+ protein, 1+ bilirubin, 1+ LE, WBC 35, RBC 25 * urine culture - no growth * blood culture (Preliminary negative) * procalcitonin 0.38 * chest xray for active disease. * Given 2 doses Macrobid for UTI Hypokalemia * K 4 * resolved. will f/u with serial cmp's. Hypomagnesia * Mg 1.8 * resolved. Will f/u with serial cmp's. Tramsaminitis * AST/ALT 185/78 stab;e; Tbil 0.9 (down from 1.4) * Patient with hx of alcohol abuse and fatty liver dx per abd US done at [facility]-->available in the paper chart. * Hepatitis negative * HIV nonreactive SCDS Protonix 40mg PO daily NPO <Cr Lopes - Last Filed: 08/05/17 21:10> Objective - Vital Signs/Intake and Output Vital Signs (last 24 hours): Temp Pulse Resp BP Pulse Ox 98.4 F 77 20 171/92 H 94 L 08/05/17 15:11 08/05/17 15:11 08/05/17 15:11 08/05/17 15:11 08/05/17 15:11 Intake and Output: 08/05/17 08/06/17 18:59 06:59 Intake Total 1560 Balance 1560 - Medications Medications: Current Medications Clonidine HCl (Catapres) 0.1 mg PO Q4H PRN PRN Reason: Symptoms of alcohol withdrawl Last Admin: 08/05/17 16:10 Dose: 0.1 mg Folic Acid (Folic Acid) 1 mg PO DAILY [facility] Last Admin: 08/05/17 09:28 Dose: 1 mg Gabapentin (Neurontin) 100 mg PO TID [facility] Last Admin: 08/05/17 17:15 Dose: 100 mg Lactated Ringer's (Lactated Ringer's) 1,000 mls @ 200 mls/hr IV .Q5H [facility] Last Admin: 08/05/17 15:06 Dose: 200 mls/hr Meropenem 1 gm/ Sodium (Chloride) 100 mls @ 100 mls/hr IVPB Q8 [facility] Last Admin: 08/05/17 15:00 Dose: 100 mls/hr Lorazepam (Ativan) 1 mg PO Q6 PRN PRN Reason: Symptoms of alcohol withdrawl Last Admin: 08/01/17 16:49 Dose: 1 mg Magnesium Oxide (Mag-Ox) 400 mg PO BID [facility] Last Admin: 08/04/17 10:25 Dose: 400 mg Multivitamins (Hexavitamin) 1 tab PO DAILY [facility] Last Admin: 08/04/17 09:47 Dose: 1 tab Nitrofurantoin Macrocrystals (Macrobid) 100 mg PO Q12H [facility] Last Admin: 08/04/17 05:34 Dose: 100 mg Pantoprazole Sodium (Protonix Ec Tab) 40 mg PO DAILY [facility] Last Admin: 08/05/17 09:39 Dose: 40 mg Saccharomyces Boulardii (Florastor) 250 mg PO BID [facility] Last Admin: 08/05/17 17:15 Dose: 250 mg Sertraline HCl (Zoloft) 100 mg PO DAILY [facility] Last Admin: 08/05/17 10:39 Dose: 100 mg Thiamine HCl (Vitamin B1 Tab) 100 mg PO DAILY [facility] Last Admin: 08/05/17 09:28 Dose: 100 mg Trazodone HCl (Desyrel) 100 mg PO HS PRN PRN Reason: Insomnia Last Admin: 08/04/17 22:28 Dose: 100 mg - Labs Labs: 08/05/17 07:43 08/05/17 07:43 Attending/Attestation - Attestation I have personally seen and examined this patient.: Yes I have fully participated in the care of the patient.: Yes I have reviewed all pertinent clinical information, including history, physical exam and plan: Yes Notes (Text): 08/05/17 21:09 Patient was seen and examined at 11:45 AM Exam, assessment and plan were gone over with the resident Also on ROS: Bilateral Fingers and Toes tingling that has been present for many months Watery bowel movements but no blood/not black Also follow up Stool Studies Cr Lopes D.O.
--- NOTE | 2017-08-05 19:06 | CP.PCM.PCO ---
Physician Communication Note - Physician Communication Note Physician Communication Note: Flu and pneumonia vaccine held. Patient has pancreatitis/cyst/phgelmon.
--- NOTE | 2017-08-05 20:34 | CP.PCM.CON ---
History of Present Illness - History of Present Illness History of Present Illness: dictated Past Patient History - Infectious Disease Hx of Infectious Diseases: None - Past Medical History & Family History Past Medical History?: Yes - Past Social History Smoking Status: Light Smoker < 10 Cigarettes Daily - CARDIAC Hx Cardiac Disorders: No - PULMONARY Hx Respiratory Disorders: No - NEUROLOGICAL Hx Neurological Disorder: Yes Other/Comment: PERIPHERAL NEUROPATHY - HEENT Hx HEENT Problems: No - RENAL Hx Chronic Kidney Disease: No - ENDOCRINE/METABOLIC Hx Endocrine Disorders: No - HEMATOLOGICAL/ONCOLOGICAL Hx Blood Disorders: No - INTEGUMENTARY Hx Dermatological Problems: No - MUSCULOSKELETAL/RHEUMATOLOGICAL Hx Musculoskeletal Disorders: No - GASTROINTESTINAL Hx Pancreatitis: Yes - GENITOURINARY/GYNECOLOGICAL Hx Genitourinary Disorders: No - PSYCHIATRIC Hx Substance Use: Yes - SURGICAL HISTORY Hx Surgeries: No - ANESTHESIA Hx Anesthesia: No Meds Allergies/Adverse Reactions: Allergies Allergy/AdvReac Type Severity Reaction Status Date / Time No Known Allergies Allergy Unverified 07/31/17 01:37 - Medications Medications: Current Medications Clonidine HCl (Catapres) 0.1 mg PO Q4H PRN PRN Reason: Symptoms of alcohol withdrawl Last Admin: 08/05/17 16:10 Dose: 0.1 mg Folic Acid (Folic Acid) 1 mg PO DAILY [facility] Last Admin: 08/05/17 09:28 Dose: 1 mg Gabapentin (Neurontin) 100 mg PO TID [facility] Last Admin: 08/05/17 17:15 Dose: 100 mg Lactated Ringer's (Lactated Ringer's) 1,000 mls @ 200 mls/hr IV .Q5H [facility] Last Admin: 08/05/17 15:06 Dose: 200 mls/hr Meropenem 1 gm/ Sodium (Chloride) 100 mls @ 100 mls/hr IVPB Q8 [facility] Last Admin: 08/05/17 15:00 Dose: 100 mls/hr Lorazepam (Ativan) 1 mg PO Q6 PRN PRN Reason: Symptoms of alcohol withdrawl Last Admin: 08/01/17 16:49 Dose: 1 mg Magnesium Oxide (Mag-Ox) 400 mg PO BID [facility] Last Admin: 08/04/17 10:25 Dose: 400 mg Multivitamins (Hexavitamin) 1 tab PO DAILY [facility] Last Admin: 08/04/17 09:47 Dose: 1 tab Nitrofurantoin Macrocrystals (Macrobid) 100 mg PO Q12H [facility] Last Admin: 08/04/17 05:34 Dose: 100 mg Pantoprazole Sodium (Protonix Ec Tab) 40 mg PO DAILY [facility] Last Admin: 08/05/17 09:39 Dose: 40 mg Saccharomyces Boulardii (Florastor) 250 mg PO BID [facility] Last Admin: 08/05/17 17:15 Dose: 250 mg Sertraline HCl (Zoloft) 100 mg PO DAILY [facility] Last Admin: 08/05/17 10:39 Dose: 100 mg Thiamine HCl (Vitamin B1 Tab) 100 mg PO DAILY [facility] Last Admin: 08/05/17 09:28 Dose: 100 mg Trazodone HCl (Desyrel) 100 mg PO HS PRN PRN Reason: Insomnia Last Admin: 08/04/17 22:28 Dose: 100 mg Results - Vital Signs Recent Vital Signs: Last Vital Signs Temp 98.4 F 08/05/17 15:11 Pulse 77 08/05/17 15:11 Resp 20 08/05/17 15:11 BP 171/92 H 08/05/17 15:11 Pulse Ox 94 L 08/05/17 15:11 - Labs Result Diagrams: 08/05/17 07:43 08/05/17 07:43 Labs: Laboratory Results - last 24 hr 08/05/17 08/05/17 08/05/17 07:43 07:43 12:07 WBC 11.9 H RBC 2.69 L Hgb 10.0 L Hct 29.1 L MCV 108.3 H MCH 37.0 H MCHC 34.2 RDW 13.9 Plt Count 416 H MPV 9.6 Neut % (Auto) 73.0 Lymph % (Auto) 16.3 L [place] % (Auto) 9.6 Eos % (Auto) 0.6 Baso % (Auto) 0.5 Neut # (Auto) 8.6 H Lymph # (Auto) 1.9 [place] # (Auto) 1.1 H Eos # (Auto) 0.1 Baso # (Auto) 0.1 Sodium 137 Potassium 4.0 Chloride 101 Carbon Dioxide 31 H Anion Gap 10 BUN 6 L Creatinine 0.6 L Est GFR ( Amer) > 60 Est GFR (Non-Af Amer) > 60 Random Glucose 83 Calcium 8.1 L Phosphorus 4.0 Magnesium 1.8 Total Bilirubin 0.7 AST 112 H ALT 62 H Alkaline Phosphatase 246 H Total Protein 5.7 L Albumin 2.6 L Globulin 3.1 Albumin/Globulin Ratio 0.8 L C. difficile Ag & Toxin Negative
[2017-08-06] MEDS: Lactated Ringer's 1,000 ML IV SCH ×6 (01:13→21:10)
--- NOTE | 2017-08-06 05:37 | CON ---
DATE: HISTORY OF PRESENT ILLNESS: She is a 37-year-old female, who has history of ETOH abuse. She was transferred from [facility] for psych unit evaluation for depression and visual hallucinations, but she started to have severe abdominal pain on the weekend and was having multiple bouts of nonbloody diarrhea and she denies any nausea or vomiting. She had a CAT scan done and CAT scan showed pancreatitis and she was having fever. So, I was asked to start on IV antibiotics and she says she has never had such a pain before. She does drink and she admits to heavy drinking, a pint of vodka daily for the past 1-1/2 years and she however denies ever having pancreatitis before and her CAT scan was abnormal with pancreatitis and so I started her on meropenem and today I came to see her. She is feeling little better right now. PAST MEDICAL HISTORY: Significant for depression. SURGERIES: She denies. ALLERGIES: SHE IS NOT ALLERGIC TO ANY MEDICINE. SOCIAL HISTORY: She is unemployed and she drinks a lot and she also smokes half pack per day for more than 20 years. Denies any recreational medications. FAMILY HISTORY: Negative and denies any GI problems in the past also. MEDICATIONS: She is on Catapres 0.1 mg p.o. q.4 hours p.r.n. for the alcohol withdrawal, folic acid, Neurontin, lactated Ringer's she is getting 200 mL per hour and she is on lorazepam 1 mg p.o. q.6h. She is on magnesium oxide, meropenem we started on 08/04/2017 and she is on vitamins, Macrobid, Protonix, Florastor, Zoloft, thiamine, trazodone, and she did get some magnesium IV there. REVIEW OF SYSTEMS: She denies any headaches. Denies any ears, nose, or throat problems right now. Denies any chest pain. No neck pain. No abdominal pain at this time. She is little better and denies any chest pain. PHYSICAL EXAMINATION: VITAL SIGNS: T-Max is 98.4, pulse 77, blood pressure 171/92, respirations are 20. HEENT: Head is atraumatic, normocephalic. Pupils are reacting to light. No icterus present. Tongue is moist. NECK: Supple. JVP is flat. LUNGS: Clear. No crackles or rales present. HEART: S1 and S2 is regular. ABDOMEN: Has mild epigastric tenderness. No guarding. No rigidity present. Bowel sounds are present. EXTREMITIES: Have no edema, clubbing, or cyanosis. LABORATORY DATA: Labs showed white count is 11.9 today, it was 13.9 yesterday. Hemoglobin 10, hematocrit 29.1, platelet count is 416. Sodium is 137, potassium 4, chloride of 101, bicarb is 31, BUN is 6, creatinine 0.6, and total bili is 0.9. Alk phos is 246, ALT is 62, AST is 112, and albumin is 2.6. She had a CAT scan and abdominal CAT scan showed pancreas has edematous with large amount of surrounding peripancreatic fluid consistent with acute pancreatitis, relatively large amount of fluid in the left upper quadrant that is discrete loculated appearance, fluid collection, probably a peripancreatic pseudocyst that abuts the posterior margin of the greater curvature of the stomach that measures 7.46 x 5.31 x 5.74, there is second area, which could be more heterogenous fluid possibly representing a pancreatic phlegmon anterior to the main body of the pancreas. She does have other problems with the pancreas hepatomegaly with marked infiltration and borderline splenomegaly. ASSESSMENT AND PLAN: So at this time, patient was started on meropenem to cover as she has had a white count and was symptomatic with severe abdominal pain, but I think if she continues to improve, meropenem can be discontinued soon and we will follow Gastrointestinal recommendations as Gastrointestinal is also on board. Laine Victor MD
[2017-08-06] MEDS: Meropenem 1 GM in Sodium Chloride 0.9% 100 ML IVPB SCH ×3 (05:45→21:53)
--- NOTE | 2017-08-06 06:34 | CP.PCM.PN ---
<Mikey Merida - Last Filed: 08/06/17 09:04> Subjective - Date & Time of Evaluation Date of Evaluation: 08/06/17 Time of Evaluation: 05:30 - Subjective Subjective: GI progress note: Pt seen and examined at bedside. No acute events overnight. Pt states that her abdominal pain has mostly resolved but occasionally gets a mild pain. She also complains of multiple bouts of non bloody diarrhea. Tolerated CLD. Denies any nausea or vomiting. 12 Point ROS performed and negative other than stated above. Objective - Vital Signs/Intake and Output Vital Signs (last 24 hours): Temp Pulse Resp BP Pulse Ox 98.1 F 75 20 128/79 96 08/05/17 23:18 08/05/17 23:18 08/05/17 23:18 08/05/17 23:18 08/05/17 23:18 Intake and Output: 08/05/17 08/06/17 18:59 06:59 Intake Total 1560 1900 Balance 1560 1900 - Medications Medications: Current Medications Clonidine HCl (Catapres) 0.1 mg PO Q4H PRN PRN Reason: Symptoms of alcohol withdrawl Last Admin: 08/05/17 16:10 Dose: 0.1 mg Folic Acid (Folic Acid) 1 mg PO DAILY [facility] Last Admin: 08/05/17 09:28 Dose: 1 mg Gabapentin (Neurontin) 100 mg PO TID [facility] Last Admin: 08/05/17 17:15 Dose: 100 mg Lactated Ringer's (Lactated Ringer's) 1,000 mls @ 200 mls/hr IV .Q5H [facility] Last Admin: 08/06/17 04:02 Dose: 200 mls/hr Meropenem 1 gm/ Sodium (Chloride) 100 mls @ 100 mls/hr IVPB Q8 [facility] Last Admin: 08/06/17 05:45 Dose: 100 mls/hr Lorazepam (Ativan) 1 mg PO Q6 PRN PRN Reason: Symptoms of alcohol withdrawl Last Admin: 08/01/17 16:49 Dose: 1 mg Magnesium Oxide (Mag-Ox) 400 mg PO BID [facility] Last Admin: 08/04/17 10:25 Dose: 400 mg Multivitamins (Hexavitamin) 1 tab PO DAILY [facility] Last Admin: 08/04/17 09:47 Dose: 1 tab Nitrofurantoin Macrocrystals (Macrobid) 100 mg PO Q12H [facility] Last Admin: 08/04/17 05:34 Dose: 100 mg Pantoprazole Sodium (Protonix Ec Tab) 40 mg PO DAILY [facility] Last Admin: 08/05/17 09:39 Dose: 40 mg Saccharomyces Boulardii (Florastor) 250 mg PO BID [facility] Last Admin: 08/05/17 17:15 Dose: 250 mg Sertraline HCl (Zoloft) 100 mg PO DAILY [facility] Last Admin: 08/05/17 10:39 Dose: 100 mg Thiamine HCl (Vitamin B1 Tab) 100 mg PO DAILY [facility] Last Admin: 08/05/17 09:28 Dose: 100 mg Trazodone HCl (Desyrel) 100 mg PO HS PRN PRN Reason: Insomnia Last Admin: 08/06/17 01:25 Dose: 100 mg - Labs Labs: 08/05/17 07:43 08/05/17 07:43 - Constitutional Appears: No Acute Distress - Head Exam Head Exam: ATRAUMATIC, NORMOCEPHALIC - Eye Exam Eye Exam: EOMI - ENT Exam ENT Exam: Mucous Membranes Moist - Respiratory Exam Respiratory Exam: Clear to Ausculation Bilateral. absent: Rales, Wheezes - Cardiovascular Exam Cardiovascular Exam: REGULAR RHYTHM, +S1, +S2 - GI/Abdominal Exam GI & Abdominal Exam: Soft, Normal Bowel Sounds. absent: Distended, Tenderness, Organomegaly - Extremities Exam Extremities Exam: absent: Calf Tenderness - Neurological Exam Neurological Exam: Alert, Awake - Psychiatric Exam Psychiatric exam: Normal Mood - Skin Skin Exam: Dry, Warm Assessment and Plan - Assessment and Plan (Free Text) Assessment: 37 F with past medical history ETOH abuse presents following being transferred here from [facility] to psychiatry unit here for depression and visual hallucination. Pt complaining of severe abdominal pain with diarrhea, found to have a presumed alcoholic hepatitis which is now resolving, and an acute pancreatitis with pseudocyst formation. 1. Acute pancreatitis 2. Presumed alcoholic hepatitis - now resolving 3. Diarrhea - CLD; Will advance to full liquid diet for lunch - Continue IV fluids with LR @ 200 - Follow up stool work up for diarrhea, C. diff negative; If infectious work up negative will initiate pancreatic enzymes - Continue Protonix 40mg PO daily - Anti-emetics PRN - Pain control - No intervention for pseudocyst required at this time in this acute phase of pancreatitis - Strongly encouraged abstinence of both smoking and drinking - Will cont to monitor patients clinical course Case and plan was reviewed and discussed in detail with Dr Haro. <Laz Haro - Last Filed: 08/06/17 09:37> Objective - Vital Signs/Intake and Output Vital Signs (last 24 hours): Temp Pulse Resp BP Pulse Ox 98.3 F 81 20 155/83 H 97 08/06/17 07:46 08/06/17 07:46 08/06/17 07:46 08/06/17 07:46 08/06/17 07:46 Intake and Output: 08/06/17 08/06/17 06:59 18:59 Intake Total 1900 Balance 1900 - Medications Medications: Current Medications Clonidine HCl (Catapres) 0.1 mg PO Q4H PRN PRN Reason: Symptoms of alcohol withdrawl Last Admin: 08/05/17 16:10 Dose: 0.1 mg Folic Acid (Folic Acid) 1 mg PO DAILY [facility] Last Admin: 08/05/17 09:28 Dose: 1 mg Gabapentin (Neurontin) 100 mg PO TID [facility] Last Admin: 08/05/17 17:15 Dose: 100 mg Lactated Ringer's (Lactated Ringer's) 1,000 mls @ 200 mls/hr IV .Q5H [facility] Last Admin: 08/06/17 04:02 Dose: 200 mls/hr Meropenem 1 gm/ Sodium (Chloride) 100 mls @ 100 mls/hr IVPB Q8 [facility] Last Admin: 08/06/17 05:45 Dose: 100 mls/hr Lorazepam (Ativan) 1 mg PO Q6 PRN PRN Reason: Symptoms of alcohol withdrawl Last Admin: 08/01/17 16:49 Dose: 1 mg Magnesium Oxide (Mag-Ox) 400 mg PO BID [facility] Last Admin: 08/04/17 10:25 Dose: 400 mg Multivitamins (Hexavitamin) 1 tab PO DAILY [facility] Last Admin: 08/04/17 09:47 Dose: 1 tab Nitrofurantoin Macrocrystals (Macrobid) 100 mg PO Q12H [facility] Last Admin: 08/04/17 05:34 Dose: 100 mg Pantoprazole Sodium (Protonix Ec Tab) 40 mg PO DAILY [facility] Last Admin: 08/05/17 09:39 Dose: 40 mg Saccharomyces Boulardii (Florastor) 250 mg PO BID [facility] Last Admin: 08/05/17 17:15 Dose: 250 mg Sertraline HCl (Zoloft) 100 mg PO DAILY [facility] Last Admin: 08/05/17 10:39 Dose: 100 mg Thiamine HCl (Vitamin B1 Tab) 100 mg PO DAILY [facility] Last Admin: 08/05/17 09:28 Dose: 100 mg Trazodone HCl (Desyrel) 100 mg PO HS PRN PRN Reason: Insomnia Last Admin: 08/06/17 01:25 Dose: 100 mg - Labs Labs: 08/06/17 08:39 08/06/17 08:39 Attending/Attestation - Attestation I have personally seen and examined this patient.: Yes I have fully participated in the care of the patient.: Yes I have reviewed all pertinent clinical information, including history, physical exam and plan: Yes Notes (Text): 08/06/17 09:24 I have seen and examined patient with GI fellow and medical records specialist. She is seen resting in bed comfortably, her abdominal pain has mostly resolved though she continues to endorse multiple loose bowel movements. She otherwise denies nausea, vomiting, fever/chills. Tolerating liquid diet without difficulty. ETOH abuse Acute ETOH hepatitis, pancreatitis Pancreatic pseudocyst - Advance to full liquid diet as tolerated - Continue with IVF hydration - Awaiting results of stool studies, c-difficile negative - Would stop PPI therapy as this may contribute to ongoing diarrhea - Blood cultures negative, would also consider stopping antibiotic therapy as this may also be associated with diarrhea - Will continue to monitor patient clinical course
[2017-08-06 08:44] LABS: BASO # 0.1 K/uL (0.0-0.2); BASO % 0.8 % (0.0-2.0); EOS # 0.1 K/uL (0.0-0.7); EOS % 0.7 % (0.0-4.0); HEMOGLOBIN 10.3 g/dL (11.0-16.0); LYMPH # 1.8 K/uL (1.0-4.3); LYMPH % 16.3 % (20.0-40.0); MEAN CELL VOLUME 107.7 fL (81.0-99.0); MEAN CORPUSCULAR HEMOGLOBIN 37.9 pg (27.0-31.0); MEAN CORPUSCULAR HGB CONC 35.1 g/dL (33.0-37.0); MEAN PLATELET VOLUME 9.7 fL (7.2-11.7); MONO # 0.9 K/uL (0.0-0.8); MONO % 8.8 % (0.0-10.0); NEUT # 7.9 K/uL (1.8-7.0); NEUT % 73.4 % (50.0-75.0); NRBC % 0.1 % (0.0-2.0); RBC 2.72 Mil/uL (3.80-5.20); RED CELL DISTRIBUTION WIDTH 14.1 % (11.5-14.5); WHITE BLOOD COUNT 10.8 K/uL (4.8-10.8)
[2017-08-06 09:00] LABS: ALB/GLOB RATIO 0.8 (1.0-2.1); ALBUMIN 2.5 g/dL (3.5-5.0); ALT/SGPT 56 U/L (9-52); AST/SGOT 92 U/L (14-36); BLOOD UREA NITROGEN 4 mg/dL (7-17); CALCIUM 8.3 mg/dl (8.6-10.4); GFR AFRICAN-AMERICAN > 60; GFR NON-AFRICAN AMERICAN > 60; LIPASE 230 U/L (23-300)
--- NOTE | 2017-08-06 09:16 | CP.PCM.PN ---
Subjective - Date & Time of Evaluation Date of Evaluation: 08/06/17 Time of Evaluation: 07:45 - Subjective Subjective: General surgery progress note for Dr. Lau-Rosie Hightower, PGY-1 Pt S & E at bedside this AM. Pt reports abdominal pain resolved- was advanced to CLD as per GI- tolerating. Denies N & V, F & C. Objective - Vital Signs/Intake and Output Vital Signs (last 24 hours): Temp Pulse Resp BP Pulse Ox 98.3 F 81 20 155/83 H 97 08/06/17 07:46 08/06/17 07:46 08/06/17 07:46 08/06/17 07:46 08/06/17 07:46 Intake and Output: 08/06/17 08/06/17 06:59 18:59 Intake Total 1900 Balance 1900 - Medications Medications: Current Medications Clonidine HCl (Catapres) 0.1 mg PO Q4H PRN PRN Reason: Symptoms of alcohol withdrawl Last Admin: 08/05/17 16:10 Dose: 0.1 mg Folic Acid (Folic Acid) 1 mg PO DAILY [facility] Last Admin: 08/05/17 09:28 Dose: 1 mg Gabapentin (Neurontin) 100 mg PO TID [facility] Last Admin: 08/05/17 17:15 Dose: 100 mg Lactated Ringer's (Lactated Ringer's) 1,000 mls @ 200 mls/hr IV .Q5H [facility] Last Admin: 08/06/17 04:02 Dose: 200 mls/hr Meropenem 1 gm/ Sodium (Chloride) 100 mls @ 100 mls/hr IVPB Q8 [facility] Last Admin: 08/06/17 05:45 Dose: 100 mls/hr Lorazepam (Ativan) 1 mg PO Q6 PRN PRN Reason: Symptoms of alcohol withdrawl Last Admin: 08/01/17 16:49 Dose: 1 mg Magnesium Oxide (Mag-Ox) 400 mg PO BID [facility] Last Admin: 08/04/17 10:25 Dose: 400 mg Multivitamins (Hexavitamin) 1 tab PO DAILY [facility] Last Admin: 08/04/17 09:47 Dose: 1 tab Nitrofurantoin Macrocrystals (Macrobid) 100 mg PO Q12H [facility] Last Admin: 08/04/17 05:34 Dose: 100 mg Pantoprazole Sodium (Protonix Ec Tab) 40 mg PO DAILY [facility] Last Admin: 08/05/17 09:39 Dose: 40 mg Saccharomyces Boulardii (Florastor) 250 mg PO BID [facility] Last Admin: 08/05/17 17:15 Dose: 250 mg Sertraline HCl (Zoloft) 100 mg PO DAILY [facility] Last Admin: 08/05/17 10:39 Dose: 100 mg Thiamine HCl (Vitamin B1 Tab) 100 mg PO DAILY [facility] Last Admin: 08/05/17 09:28 Dose: 100 mg Trazodone HCl (Desyrel) 100 mg PO HS PRN PRN Reason: Insomnia Last Admin: 08/06/17 01:25 Dose: 100 mg - Labs Labs: 08/06/17 08:39 08/06/17 08:39 - Constitutional Appears: Non-toxic, No Acute Distress - Head Exam Head Exam: ATRAUMATIC, NORMAL INSPECTION, NORMOCEPHALIC - Eye Exam Eye Exam: EOMI, Normal appearance - ENT Exam ENT Exam: Mucous Membranes Moist, Normal Exam - Neck Exam Neck Exam: Full ROM, Normal Inspection - Respiratory Exam Respiratory Exam: NORMAL BREATHING PATTERN - Cardiovascular Exam Cardiovascular Exam: REGULAR RHYTHM - GI/Abdominal Exam GI & Abdominal Exam: absent: Distended, Firm, Guarding, Rigid, Tenderness, Mass - Extremities Exam Extremities Exam: Full ROM, Normal Capillary Refill, Normal Inspection - Neurological Exam Neurological Exam: Alert, Awake, CN II-XII Intact, Oriented x3 - Psychiatric Exam Psychiatric exam: Normal Affect, Normal Mood - Skin Skin Exam: Dry, Intact, Normal Color, Warm Assessment and Plan - Assessment and Plan (Free Text) Assessment: 37F w/ETOH pancreatitis and pancreatic pseudocyst Plan: Advanced to CLD as per GI Cont pain control Cont conservative mgmt No surgical intervention at this time Recommend EUS and FNA of pseudocyst at some point Will DW attending Katja, PGY-1
[2017-08-06] MEDS: Saccharomyces Boulardi 250 mg Cap PO SCH ×2 (10:21→17:13)
--- NOTE | 2017-08-06 16:24 | CP.PCM.PN ---
<Dane Fan - Last Filed: 08/06/17 17:34> Subjective - Date & Time of Evaluation Date of Evaluation: 08/06/17 Time of Evaluation: 06:22 - Subjective Subjective: Patient seen and examined at bedside .Per nursing no acute events occurred overnight. The patient still is reporting non-bloody diarrheaa since last night. The patient reports tolerating her diet with no complaints. The patient denies any chest pain, shortness of breath, fevers, chills, lightheadedness, dizziness, changes in vision, or any other complaints. Objective - Vital Signs/Intake and Output Vital Signs (last 24 hours): Temp Pulse Resp BP Pulse Ox 98.3 F 81 20 155/83 H 97 08/06/17 07:46 08/06/17 07:46 08/06/17 07:46 08/06/17 07:46 08/06/17 07:46 Intake and Output: 08/06/17 08/06/17 06:59 18:59 Intake Total 1900 1660 Balance 1900 1660 - Medications Medications: Current Medications Clonidine HCl (Catapres) 0.1 mg PO Q4H PRN PRN Reason: Symptoms of alcohol withdrawl Last Admin: 08/05/17 16:10 Dose: 0.1 mg Folic Acid (Folic Acid) 1 mg PO DAILY [facility] Last Admin: 08/06/17 10:21 Dose: 1 mg Gabapentin (Neurontin) 100 mg PO TID [facility] Last Admin: 08/06/17 14:03 Dose: 100 mg Lactated Ringer's (Lactated Ringer's) 1,000 mls @ 200 mls/hr IV .Q5H [facility] Last Admin: 08/06/17 10:22 Dose: 200 mls/hr Meropenem 1 gm/ Sodium (Chloride) 100 mls @ 100 mls/hr IVPB Q8 [facility] Last Admin: 08/06/17 14:02 Dose: 100 mls/hr Lorazepam (Ativan) 1 mg PO Q6 PRN PRN Reason: Symptoms of alcohol withdrawl Last Admin: 08/01/17 16:49 Dose: 1 mg Magnesium Oxide (Mag-Ox) 400 mg PO BID [facility] Last Admin: 08/04/17 10:25 Dose: 400 mg Multivitamins (Hexavitamin) 1 tab PO DAILY [facility] Last Admin: 08/04/17 09:47 Dose: 1 tab Nitrofurantoin Macrocrystals (Macrobid) 100 mg PO Q12H [facility] Last Admin: 08/04/17 05:34 Dose: 100 mg Saccharomyces Boulardii (Florastor) 250 mg PO BID [facility] Last Admin: 08/06/17 10:21 Dose: 250 mg Sertraline HCl (Zoloft) 100 mg PO DAILY [facility] Last Admin: 08/06/17 10:21 Dose: 100 mg Thiamine HCl (Vitamin B1 Tab) 100 mg PO DAILY [facility] Last Admin: 08/06/17 10:21 Dose: 100 mg Trazodone HCl (Desyrel) 100 mg PO HS PRN PRN Reason: Insomnia Last Admin: 08/06/17 01:25 Dose: 100 mg - Labs Labs: 08/06/17 08:39 08/06/17 08:39 - Head Exam Head Exam: ATRAUMATIC, NORMAL INSPECTION, NORMOCEPHALIC - Eye Exam Eye Exam: EOMI, Normal appearance, PERRL. absent: Periorbital tenderness Pupil Exam: NORMAL ACCOMODATION, PERRL. absent: Irregular, Unequal - ENT Exam ENT Exam: Mucous Membranes Moist, Normal Exam, Normal Oropharynx - Neck Exam Neck Exam: Full ROM. absent: Lymphadenopathy, Thyromegaly - Respiratory Exam Respiratory Exam: Clear to Ausculation Bilateral, NORMAL BREATHING PATTERN. absent: Chest Wall Tenderness, Prolonged Expiratory Phase, Respiratory Distress - Cardiovascular Exam Cardiovascular Exam: REGULAR RHYTHM, RRR, +S1, +S2. absent: Rubs - GI/Abdominal Exam GI & Abdominal Exam: Soft, Normal Bowel Sounds. absent: Rigid, Hyperactive Bowel Sounds - Extremities Exam Extremities Exam: Full ROM, Normal Inspection. absent: Pedal Edema - Back Exam Back Exam: NORMAL INSPECTION. absent: CVA tenderness (L), CVA tenderness (R), paraspinal tenderness - Neurological Exam Neurological Exam: Alert, Awake, CN II-XII Intact, Normal Gait - Psychiatric Exam Psychiatric exam: Normal Affect, Normal Mood - Skin Skin Exam: Dry, Intact, Normal Color, Warm Assessment and Plan - Assessment and Plan (Free Text) Plan: Pancreatitis * CT abd/pelvis 08/04: findings consistent with acute pancreatitis associates with peripancreatic fluid and infiltration and pseudocyst formation abutting great curvature/posterior margin of the stomach. There are also large a amporphus phlegmonous component of inflammatory changes anterior to the pancreatic head and body (please see full report) * Surgery consulted, Dr. Lau, rec's appreciated * ID consulted, Dr. Victor, rec's appreciated * Continue Meropenem 1gm IVPB every 8hours * Lipase 183 from 10/01 * Continue LR at 200 cc/hour * Advanced to liquid diet by GI. Will monitor and advance as tolerated. Leukocytosis * Will rule out infection - likely secondary to pancreatitis, improving, patient is afebrile * WBC 11.9 Today(recently was ~ 10 on admission at [facility]); ESR: 88, CRP > 15 * UA: 2+ protein, 1+ bilirubin, 1+ LE, WBC 35, RBC 25 * urine culture - no growth * blood culture (Preliminary negative) * procalcitonin 0.38 * chest xray for active disease. * Given 2 doses Macrobid for UTI Hypokalemia * K 3.4 * resolved. will f/u with serial cmp's. Hypomagnesia * resolved. Will f/u with serial cmp's. Tramsaminitis * AST/ALT 92/56 stab;e; Tbil 0.6 * Patient with hx of alcohol abuse and fatty liver dx per abd US done at [facility]-->available in the paper chart. * Hepatitis negative * HIV nonreactive SCDS Protonix 40mg PO daily Liquid diet <Cr Lopes - Last Filed: 08/06/17 19:26> Objective - Vital Signs/Intake and Output Vital Signs (last 24 hours): Temp Pulse Resp BP Pulse Ox 98.7 F 79 20 147/94 H 96 08/06/17 16:50 08/06/17 16:50 08/06/17 16:50 08/06/17 16:50 08/06/17 16:50 Intake and Output: 08/06/17 08/07/17 18:59 06:59 Intake Total 1660 Balance 1660 - Medications Medications: Current Medications Clonidine HCl (Catapres) 0.1 mg PO Q4H PRN PRN Reason: Symptoms of alcohol withdrawl Last Admin: 08/05/17 16:10 Dose: 0.1 mg Folic Acid (Folic Acid) 1 mg PO DAILY [facility] Last Admin: 08/06/17 10:21 Dose: 1 mg Gabapentin (Neurontin) 100 mg PO TID [facility] Last Admin: 08/06/17 17:14 Dose: 100 mg Lactated Ringer's (Lactated Ringer's) 1,000 mls @ 200 mls/hr IV .Q5H [facility] Last Admin: 08/06/17 16:00 Dose: 200 mls/hr Meropenem 1 gm/ Sodium (Chloride) 100 mls @ 100 mls/hr IVPB Q8 [facility] Last Admin: 08/06/17 14:02 Dose: 100 mls/hr Lorazepam (Ativan) 1 mg PO Q6 PRN PRN Reason: Symptoms of alcohol withdrawl Last Admin: 08/01/17 16:49 Dose: 1 mg Magnesium Oxide (Mag-Ox) 400 mg PO BID [facility] Last Admin: 08/04/17 10:25 Dose: 400 mg Multivitamins (Hexavitamin) 1 tab PO DAILY [facility] Last Admin: 08/04/17 09:47 Dose: 1 tab Nitrofurantoin Macrocrystals (Macrobid) 100 mg PO Q12H [facility] Last Admin: 08/04/17 05:34 Dose: 100 mg Saccharomyces Boulardii (Florastor) 250 mg PO BID [facility] Last Admin: 08/06/17 17:13 Dose: 250 mg Sertraline HCl (Zoloft) 100 mg PO DAILY [facility] Last Admin: 08/06/17 10:21 Dose: 100 mg Thiamine HCl (Vitamin B1 Tab) 100 mg PO DAILY [facility] Last Admin: 08/06/17 10:21 Dose: 100 mg Trazodone HCl (Desyrel) 100 mg PO HS PRN PRN Reason: Insomnia Last Admin: 08/06/17 01:25 Dose: 100 mg - Labs Labs: 08/06/17 08:39 08/06/17 08:39 Attending/Attestation - Attestation I have personally seen and examined this patient.: Yes I have fully participated in the care of the patient.: Yes I have reviewed all pertinent clinical information, including history, physical exam and plan: Yes Notes (Text): 08/06/17 19:18 Patient was seen and examined at 3:15 PM 08/06/17. Exam, assessment and plan were gone over with the resident Also on ROS: Diarrhea clear persists Tolerating full liquid (except she did not like the taste of the soup) NO abdominal pain Skin on fingertips pealing since her admission to [facility] Also on Exam: GI: Epigastric tenderness without guarding/rebound upon deep palpation Skin: finger tips with skin peeling from tips to dip line bilaterally on all fingers (no signs of cellulitis) Assessments: 1). Acute Pancreatitis/Pseudocyst/Phlegmon LR @200 ml/hour Full Liquid Diet Meropenem Blood Culture 08/03/17: NGTD Urine Culture 08/03/17: negative Speak with ID Dr. Victor about length of antibiotic treatment and IV to PO switch When to repeat CT Abdomen/Pelvis? When to perform EUS FNA Bx of Pancreas if at all? GI Dr. Haro Surgery Dr. Lau 2). Elevated LFTs Likely secondary to heavy alcohol abuse (1 liter of Vodka daily) Trending down Hepatitis Panel negative HIV negative 3). Hx Alcohol Abuse Clonidine PRN Folic Acid Gabapentin Ativan PRN MVI Thiamine 4). 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 Anemia Likely secondary to Alcohol Abuse Hgb/Hct are stable 6). Diarrhea C. diff is negative O&P are negative F/U Stool Culture 7). Skin Pealing Monitor for now 8). 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 Prophylaxis Florastor Bilateral SCDs NO PPI secondary to the diarrhea F/U Vitamin B12 and Folate level Cr Lopes D.O.
[2017-08-07] MEDS: Lactated Ringer's 1,000 ML IV SCH ×5 (02:00→21:33)
[2017-08-07] MEDS: Meropenem 1 GM in Sodium Chloride 0.9% 100 ML IVPB SCH ×3 (05:20→21:28)
--- NOTE | 2017-08-07 06:35 | CP.PCM.PN ---
<Mikey Merida - Last Filed: 08/07/17 09:22> Subjective - Date & Time of Evaluation Date of Evaluation: 08/07/17 Time of Evaluation: 06:00 - Subjective Subjective: GI progress note: Pt seen and examined at bedside. No acute events overnight. Pt complains of some abdominal distension as well as diarrhea. Tolerated full liquids. Denies any nausea or vomiting. 12 Point ROS performed and negative other than stated above. Objective - Vital Signs/Intake and Output Vital Signs (last 24 hours): Temp Pulse Resp BP Pulse Ox 98.5 F 69 20 149/86 96 08/07/17 00:00 08/07/17 00:00 08/07/17 00:00 08/07/17 00:00 08/07/17 00:00 Intake and Output: 08/06/17 08/07/17 18:59 06:59 Intake Total 1660 Balance 1660 - Medications Medications: Current Medications Clonidine HCl (Catapres) 0.1 mg PO Q4H PRN PRN Reason: Symptoms of alcohol withdrawl Last Admin: 08/05/17 16:10 Dose: 0.1 mg Folic Acid (Folic Acid) 1 mg PO DAILY [facility] Last Admin: 08/06/17 10:21 Dose: 1 mg Gabapentin (Neurontin) 100 mg PO TID [facility] Last Admin: 08/06/17 17:14 Dose: 100 mg Lactated Ringer's (Lactated Ringer's) 1,000 mls @ 200 mls/hr IV .Q5H [facility] Last Admin: 08/07/17 02:00 Dose: 200 mls/hr Meropenem 1 gm/ Sodium (Chloride) 100 mls @ 100 mls/hr IVPB Q8 [facility] Last Admin: 08/07/17 05:20 Dose: 100 mls/hr Lorazepam (Ativan) 1 mg PO Q6 PRN PRN Reason: Symptoms of alcohol withdrawl Last Admin: 08/01/17 16:49 Dose: 1 mg Magnesium Oxide (Mag-Ox) 400 mg PO BID [facility] Last Admin: 08/04/17 10:25 Dose: 400 mg Multivitamins (Hexavitamin) 1 tab PO DAILY [facility] Last Admin: 08/04/17 09:47 Dose: 1 tab Nitrofurantoin Macrocrystals (Macrobid) 100 mg PO Q12H [facility] Last Admin: 08/04/17 05:34 Dose: 100 mg Saccharomyces Boulardii (Florastor) 250 mg PO BID [facility] Last Admin: 08/06/17 17:13 Dose: 250 mg Sertraline HCl (Zoloft) 100 mg PO DAILY [facility] Last Admin: 08/06/17 10:21 Dose: 100 mg Thiamine HCl (Vitamin B1 Tab) 100 mg PO DAILY [facility] Last Admin: 08/06/17 10:21 Dose: 100 mg Trazodone HCl (Desyrel) 100 mg PO HS PRN PRN Reason: Insomnia Last Admin: 08/06/17 21:57 Dose: 100 mg - Labs Labs: 08/06/17 08:39 08/06/17 08:39 - Constitutional Appears: No Acute Distress - Head Exam Head Exam: ATRAUMATIC, NORMOCEPHALIC - Eye Exam Eye Exam: EOMI - ENT Exam ENT Exam: Mucous Membranes Moist - Respiratory Exam Respiratory Exam: Clear to Ausculation Bilateral. absent: Rales, Wheezes - Cardiovascular Exam Cardiovascular Exam: REGULAR RHYTHM, +S1, +S2 - GI/Abdominal Exam GI & Abdominal Exam: Soft, Normal Bowel Sounds. absent: Distended, Tenderness, Organomegaly - Extremities Exam Extremities Exam: absent: Calf Tenderness, Tenderness - Neurological Exam Neurological Exam: Alert, Awake - Psychiatric Exam Psychiatric exam: Normal Mood - Skin Skin Exam: Dry, Intact, Warm Assessment and Plan - Assessment and Plan (Free Text) Assessment: 37 F with past medical history ETOH abuse presents following being transferred here from [facility] to psychiatry unit here for depression and visual hallucination. Pt complaining of severe abdominal pain with diarrhea, found to have a presumed alcoholic hepatitis which is now resolving, and an acute pancreatitis with pseudocyst formation. 1. Acute pancreatitis 2. Presumed alcoholic hepatitis - now resolving 3. Diarrhea - Full liquids ; Will advance to low fat diet today - Continue IV fluids with LR @ 200 - Pacreaze started today for pancreatic insufficiency and diarrhea - Started Protonix 40mg PO ACB - Follow up stool work up for diarrhea, C. diff negative - Blood cultures negative - Would consider stopping abx therapy since it may be associated with diarrhea - Anti-emetics PRN - Pain control - No intervention for pseudocyst required at this time in this acute phase of pancreatitis - Strongly encouraged abstinence of both smoking and drinking - Will cont to monitor patients clinical course Case and plan was reviewed and discussed in detail with Dr Coelho. <Cedric Coelho - Last Filed: 08/07/17 11:19> Objective - Vital Signs/Intake and Output Vital Signs (last 24 hours): Temp Pulse Resp BP Pulse Ox 98.1 F 83 20 153/88 H 96 08/07/17 07:59 08/07/17 07:59 08/07/17 07:59 08/07/17 07:59 08/07/17 07:59 Intake and Output: 08/07/17 08/07/17 06:59 18:59 Intake Total 1999 Balance 1999 - Medications Medications: Current Medications Clonidine HCl (Catapres) 0.1 mg PO Q4H PRN PRN Reason: Symptoms of alcohol withdrawl Last Admin: 08/07/17 09:46 Dose: 0.1 mg Cyanocobalamin (Vitamin B12 1000 Mcg/Ml Inj) 1,000 mcg IM ONCE ONE Stop: 08/07/17 12:01 Folic Acid (Folic Acid) 1 mg PO DAILY [facility] Last Admin: 08/07/17 09:46 Dose: 1 mg Gabapentin (Neurontin) 100 mg PO TID [facility] Last Admin: 08/07/17 09:46 Dose: 100 mg Lactated Ringer's (Lactated Ringer's) 1,000 mls @ 200 mls/hr IV .Q5H [facility] Last Admin: 08/07/17 07:00 Dose: Not Given Meropenem 1 gm/ Sodium (Chloride) 100 mls @ 100 mls/hr IVPB Q8 [facility] Last Admin: 08/07/17 05:20 Dose: 100 mls/hr Lorazepam (Ativan) 1 mg PO Q6 PRN PRN Reason: Symptoms of alcohol withdrawl Last Admin: 08/01/17 16:49 Dose: 1 mg Magnesium Oxide (Mag-Ox) 400 mg PO BID [facility] Last Admin: 08/04/17 10:25 Dose: 400 mg Multivitamins (Hexavitamin) 1 tab PO DAILY [facility] Last Admin: 08/04/17 09:47 Dose: 1 tab Nitrofurantoin Macrocrystals (Macrobid) 100 mg PO Q12H [facility] Last Admin: 08/04/17 05:34 Dose: 100 mg Pantoprazole Sodium (Protonix Ec Tab) 40 mg PO ACB [facility] Last Admin: 08/07/17 08:35 Dose: 40 mg Saccharomyces Boulardii (Florastor) 250 mg PO BID [facility] Last Admin: 08/07/17 09:47 Dose: 250 mg Sertraline HCl (Zoloft) 100 mg PO DAILY [facility] Last Admin: 08/07/17 09:46 Dose: 100 mg Thiamine HCl (Vitamin B1 Tab) 100 mg PO DAILY [facility] Last Admin: 08/07/17 09:46 Dose: 100 mg Trazodone HCl (Desyrel) 100 mg PO HS PRN PRN Reason: Insomnia Last Admin: 08/06/17 21:57 Dose: 100 mg - Labs Labs: 08/07/17 07:50 08/07/17 07:50 Attending/Attestation - Attestation I have personally seen and examined this patient.: Yes I have fully participated in the care of the patient.: Yes I have reviewed all pertinent clinical information, including history, physical exam and plan: Yes Notes (Text): 08/07/17 11:17 37 year old female with h/o Alcohol abuse admitted with severe acute pancreatitis. 1. Acute pancreatitis 2. Alcoholic hepatitis 3. Diarrhea Plan: - advance diet to low fat today - pain is resolved, tolerated diet without vomiting - start panc enzymes and PPI for possible pancreatic insufficiency - advised complete etoh/smoking abstinence - may reduce fluids to maintenance rate today - no indication for intervention on acute pancreatic fluid collection since she is asymptomatic and the collection is immature
[2017-08-07 08:11] LABS: BASO # 0.1 K/uL (0.0-0.2); BASO % 1.3 % (0.0-2.0); EOS # 0.1 K/uL (0.0-0.7); EOS % 0.6 % (0.0-4.0); HEMOGLOBIN 10.6 g/dL (11.0-16.0); LYMPH # 2.1 K/uL (1.0-4.3); LYMPH % 20.5 % (20.0-40.0); MEAN CELL VOLUME 106.8 fL (81.0-99.0); MEAN CORPUSCULAR HEMOGLOBIN 37.8 pg (27.0-31.0); MEAN CORPUSCULAR HGB CONC 35.4 g/dL (33.0-37.0); MEAN PLATELET VOLUME 9.5 fL (7.2-11.7); MONO # 0.8 K/uL (0.0-0.8); MONO % 7.5 % (0.0-10.0); NEUT # 7.3 K/uL (1.8-7.0); NEUT % 70.1 % (50.0-75.0); RBC 2.8 Mil/uL (3.80-5.20); WHITE BLOOD COUNT 10.4 K/uL (4.8-10.8)
[2017-08-07] MEDS: Pantoprazole 40 mg EC Tab PO SCH (08:35)
[2017-08-07 08:46] LABS: ALB/GLOB RATIO 0.9 (1.0-2.1); ALBUMIN 2.6 g/dL (3.5-5.0); ALT/SGPT 49 U/L (9-52); AST/SGOT 71 U/L (14-36); BLOOD UREA NITROGEN 3 mg/dL (7-17); CALCIUM 7.9 mg/dl (8.6-10.4); GFR AFRICAN-AMERICAN > 60; GFR NON-AFRICAN AMERICAN > 60
[2017-08-07 09:37] LABS: FOLATE 10.2 ng/mL
[2017-08-07] MEDS: Saccharomyces Boulardi 250 mg Cap PO SCH ×2 (09:47→18:40)
[2017-08-07] MEDS ORDERED: Pneumococcal 23-Valent Vaccine IM ONE (10:00)
[2017-08-07] MEDS ORDERED: Influenza Vaccine 60 mcg/0.5 mL SYR (4YR UP) IM ONE (10:00)
[2017-08-07] MEDS: LIPASE/PROTEASE/AMYLASE 21,000 U ECC PO SCH ×3 (10:39→21:29)
--- NOTE | 2017-08-07 13:14 | CP.PCM.PN ---
Subjective - Date & Time of Evaluation Date of Evaluation: 08/07/17 Time of Evaluation: 11:25 - Subjective Subjective: General Surgery Pt S&E with LOKESH Collins. Pt without pain, eating regular diet. No complaints at this time. Objective - Vital Signs/Intake and Output Vital Signs (last 24 hours): Temp Pulse Resp BP Pulse Ox 98.1 F 83 20 153/88 H 96 08/07/17 07:59 08/07/17 07:59 08/07/17 07:59 08/07/17 07:59 08/07/17 07:59 Intake and Output: 08/07/17 08/07/17 06:59 18:59 Intake Total 1999 Balance 1999 - Medications Medications: Current Medications Clonidine HCl (Catapres) 0.1 mg PO Q4H PRN PRN Reason: Symptoms of alcohol withdrawl Last Admin: 08/07/17 09:46 Dose: 0.1 mg Folic Acid (Folic Acid) 1 mg PO DAILY [facility] Last Admin: 08/07/17 09:46 Dose: 1 mg Gabapentin (Neurontin) 100 mg PO TID [facility] Last Admin: 08/07/17 09:46 Dose: 100 mg Lactated Ringer's (Lactated Ringer's) 1,000 mls @ 200 mls/hr IV .Q5H [facility] Last Admin: 08/07/17 12:51 Dose: 200 mls/hr Meropenem 1 gm/ Sodium (Chloride) 100 mls @ 100 mls/hr IVPB Q8 [facility] Last Admin: 08/07/17 05:20 Dose: 100 mls/hr Lorazepam (Ativan) 1 mg PO Q6 PRN PRN Reason: Symptoms of alcohol withdrawl Last Admin: 08/01/17 16:49 Dose: 1 mg Magnesium Oxide (Mag-Ox) 400 mg PO BID [facility] Last Admin: 08/04/17 10:25 Dose: 400 mg Multivitamins (Hexavitamin) 1 tab PO DAILY [facility] Last Admin: 08/04/17 09:47 Dose: 1 tab Nitrofurantoin Macrocrystals (Macrobid) 100 mg PO Q12H [facility] Last Admin: 08/04/17 05:34 Dose: 100 mg Pantoprazole Sodium (Protonix Ec Tab) 40 mg PO ACB [facility] Last Admin: 08/07/17 08:35 Dose: 40 mg Saccharomyces Boulardii (Florastor) 250 mg PO BID [facility] Last Admin: 08/07/17 09:47 Dose: 250 mg Sertraline HCl (Zoloft) 100 mg PO DAILY [facility] Last Admin: 08/07/17 09:46 Dose: 100 mg Thiamine HCl (Vitamin B1 Tab) 100 mg PO DAILY [facility] Last Admin: 08/07/17 09:46 Dose: 100 mg Trazodone HCl (Desyrel) 100 mg PO HS PRN PRN Reason: Insomnia Last Admin: 08/06/17 21:57 Dose: 100 mg - Labs Labs: 08/07/17 07:50 08/07/17 07:50 - Constitutional Appears: Non-toxic, No Acute Distress - Head Exam Head Exam: ATRAUMATIC, NORMOCEPHALIC - Eye Exam Eye Exam: EOMI. absent: Scleral icterus - Respiratory Exam Respiratory Exam: NORMAL BREATHING PATTERN. absent: Respiratory Distress - GI/Abdominal Exam GI & Abdominal Exam: Guarding (mild in epigastrum), Soft. absent: Firm, Rigid, Tenderness Assessment and Plan - Assessment and Plan (Free Text) Assessment: 37F w/ETOH pancreatitis and pancreatic pseudocyst Plan: No surgical intervention at this time Will need outpt follow up to monitor pseudocyst to see if it regresses Recommend EUS/FNA of pseudocyst if it does not resolve Ok for DC from a surgical standpoint, can follow up with GI. D/W Dr. Judi Bar PGY4
--- NOTE | 2017-08-07 16:40 | CP.PCM.PN ---
<Dane Fan - Last Filed: 08/07/17 18:53> Subjective - Date & Time of Evaluation Date of Evaluation: 08/07/17 Time of Evaluation: 07:34 - Subjective Subjective: Patient seen and examined at bedside. Per nursing no acute events occurred overnight. The patient reports having a difficult time sleeping last night. The patient is tolerating diet with no complaints. The patient reports diarrhea , however its now mixed with solid stool . The patient denies any chest pain, lightheadedness, dizziness, nausea, vomiting, or any other complaints. Objective - Vital Signs/Intake and Output Vital Signs (last 24 hours): Temp Pulse Resp BP Pulse Ox 99 F 80 20 146/86 99 08/07/17 16:00 08/07/17 16:00 08/07/17 16:00 08/07/17 16:00 08/07/17 16:00 Intake and Output: 08/07/17 08/07/17 06:59 18:59 Intake Total 1999 1979 Balance 1999 1979 - Medications Medications: Current Medications Clonidine HCl (Catapres) 0.1 mg PO Q4H PRN PRN Reason: Symptoms of alcohol withdrawl Last Admin: 08/07/17 09:46 Dose: 0.1 mg Folic Acid (Folic Acid) 1 mg PO DAILY [facility] Last Admin: 08/07/17 09:46 Dose: 1 mg Gabapentin (Neurontin) 100 mg PO TID [facility] Last Admin: 08/07/17 13:57 Dose: 100 mg Lactated Ringer's (Lactated Ringer's) 1,000 mls @ 200 mls/hr IV .Q5H [facility] Last Admin: 08/07/17 12:51 Dose: 200 mls/hr Meropenem 1 gm/ Sodium (Chloride) 100 mls @ 100 mls/hr IVPB Q8 [facility] Last Admin: 08/07/17 13:57 Dose: 100 mls/hr Lorazepam (Ativan) 1 mg PO Q6 PRN PRN Reason: Symptoms of alcohol withdrawl Last Admin: 08/01/17 16:49 Dose: 1 mg Magnesium Oxide (Mag-Ox) 400 mg PO BID [facility] Last Admin: 08/04/17 10:25 Dose: 400 mg Multivitamins (Hexavitamin) 1 tab PO DAILY [facility] Last Admin: 08/04/17 09:47 Dose: 1 tab Nitrofurantoin Macrocrystals (Macrobid) 100 mg PO Q12H [facility] Last Admin: 08/04/17 05:34 Dose: 100 mg Pantoprazole Sodium (Protonix Ec Tab) 40 mg PO ACB [facility] Last Admin: 08/07/17 08:35 Dose: 40 mg Saccharomyces Boulardii (Florastor) 250 mg PO BID [facility] Last Admin: 08/07/17 09:47 Dose: 250 mg Sertraline HCl (Zoloft) 100 mg PO DAILY [facility] Last Admin: 08/07/17 09:46 Dose: 100 mg Thiamine HCl (Vitamin B1 Tab) 100 mg PO DAILY [facility] Last Admin: 08/07/17 09:46 Dose: 100 mg Trazodone HCl (Desyrel) 100 mg PO HS PRN PRN Reason: Insomnia Last Admin: 08/06/17 21:57 Dose: 100 mg Zolpidem Tartrate (Ambien) 5 mg PO ONCE ONE Stop: 08/07/17 22:01 - Labs Labs: 08/07/17 07:50 08/07/17 07:50 - Head Exam Head Exam: ATRAUMATIC, NORMAL INSPECTION, NORMOCEPHALIC - Eye Exam Eye Exam: EOMI, Normal appearance, PERRL Pupil Exam: NORMAL ACCOMODATION, PERRL. absent: Irregular - ENT Exam ENT Exam: Mucous Membranes Moist, Normal Exam, Normal Oropharynx - Neck Exam Neck Exam: Normal Inspection. absent: Lymphadenopathy, Thyromegaly - Respiratory Exam Respiratory Exam: Clear to Ausculation Bilateral, NORMAL BREATHING PATTERN. absent: Chest Wall Tenderness, Prolonged Expiratory Phase, Respiratory Distress - Cardiovascular Exam Cardiovascular Exam: REGULAR RHYTHM, RRR, +S1, +S2. absent: Rubs - GI/Abdominal Exam GI & Abdominal Exam: Soft, Normal Bowel Sounds - Extremities Exam Additional comments: peeling of the hands has stopped still reports some numbness and tingling in the hands and feet. - Back Exam Back Exam: NORMAL INSPECTION. absent: CVA tenderness (L), CVA tenderness (R), paraspinal tenderness - Neurological Exam Neurological Exam: Alert, Awake, CN II-XII Intact - Psychiatric Exam Psychiatric exam: Normal Affect, Normal Mood - Skin Skin Exam: Dry, Intact, Warm Assessment and Plan - Assessment and Plan (Free Text) Plan: Pancreatitis * CT abd/pelvis 08/04: findings consistent with acute pancreatitis associates with peripancreatic fluid and infiltration and pseudocyst formation abutting great curvature/posterior margin of the stomach. There are also large a amporphus phlegmonous component of inflammatory changes anterior to the pancreatic head and body (please see full report) * Surgery consulted, Dr. Lau, rec's appreciated * ID consulted, Dr. Victor, rec's appreciated * Continue Meropenem 1gm IVPB every 8hours * Lipase 183 from 10/01 * Continue LR at 200 cc/hour * Pancreaze started by GI. * Advanced to liquid diet by GI. Tolerating diet. Expected to be advanced to soft diet tomorrow. Leukocytosis---> Resolved * Will rule out infection - likely secondary to pancreatitis, improving, patient is afebrile * WBC 10.4 Today(recently was ~ 10 on admission at [place]); ESR: 88, CRP > 15 * UA: 2+ protein, 1+ bilirubin, 1+ LE, WBC 35, RBC 25 * urine culture - no growth * blood culture (Preliminary negative) * procalcitonin 0.38 * Given 2 doses Macrobid for UTI * Continue IV Meropenem. Will f/u with Dr. Victor for rec's. Hypokalemia ---> Resolved * K 4.2 * resolved. will f/u with serial cmp's. Hypomagnesia * resolved. Will f/u with serial cmp's. Tramsaminitis * AST/ALT 71/49 stab;e; Tbil 0.6 * Patient with hx of alcohol abuse and fatty liver dx per abd US done at [place]-->available in the paper chart. * Hepatitis negative * HIV nonreactive Insomnia -Ambien 5mg po One dose. SCDS Protonix 40mg PO daily Liquid diet <Cr Lopes - Last Filed: 08/07/17 20:10> Objective - Vital Signs/Intake and Output Vital Signs (last 24 hours): Temp Pulse Resp BP Pulse Ox 99 F 80 20 146/86 99 08/07/17 16:00 08/07/17 16:00 08/07/17 16:00 08/07/17 16:00 08/07/17 16:00 Intake and Output: 08/07/17 08/08/17 18:59 06:59 Intake Total 1980 Balance 1980 - Medications Medications: Current Medications Clonidine HCl (Catapres) 0.1 mg PO Q4H PRN PRN Reason: Symptoms of alcohol withdrawl Last Admin: 08/07/17 09:46 Dose: 0.1 mg Folic Acid (Folic Acid) 1 mg PO DAILY [facility] Last Admin: 08/07/17 09:46 Dose: 1 mg Gabapentin (Neurontin) 100 mg PO TID [facility] Last Admin: 08/07/17 18:40 Dose: 100 mg Lactated Ringer's (Lactated Ringer's) 1,000 mls @ 200 mls/hr IV .Q5H [facility] Last Admin: 08/07/17 17:00 Dose: 200 mls/hr Meropenem 1 gm/ Sodium (Chloride) 100 mls @ 100 mls/hr IVPB Q8 [facility] Last Admin: 08/07/17 13:57 Dose: 100 mls/hr Lorazepam (Ativan) 1 mg PO Q6 PRN PRN Reason: Symptoms of alcohol withdrawl Last Admin: 08/01/17 16:49 Dose: 1 mg Magnesium Oxide (Mag-Ox) 400 mg PO BID [facility] Last Admin: 08/04/17 10:25 Dose: 400 mg Multivitamins (Hexavitamin) 1 tab PO DAILY [facility] Last Admin: 08/04/17 09:47 Dose: 1 tab Nitrofurantoin Macrocrystals (Macrobid) 100 mg PO Q12H [facility] Last Admin: 08/04/17 05:34 Dose: 100 mg Pantoprazole Sodium (Protonix Ec Tab) 40 mg PO ACB [facility] Last Admin: 08/07/17 08:35 Dose: 40 mg Saccharomyces Boulardii (Florastor) 250 mg PO BID [facility] Last Admin: 08/07/17 18:40 Dose: 250 mg Sertraline HCl (Zoloft) 100 mg PO DAILY [facility] Last Admin: 08/07/17 09:46 Dose: 100 mg Thiamine HCl (Vitamin B1 Tab) 100 mg PO DAILY [facility] Last Admin: 08/07/17 09:46 Dose: 100 mg Trazodone HCl (Desyrel) 100 mg PO HS PRN PRN Reason: Insomnia Last Admin: 08/06/17 21:57 Dose: 100 mg Zolpidem Tartrate (Ambien) 5 mg PO ONCE ONE Stop: 08/07/17 22:01 - Labs Labs: 08/07/17 07:50 08/07/17 07:50 Attending/Attestation - Attestation I have personally seen and examined this patient.: Yes I have fully participated in the care of the patient.: Yes I have reviewed all pertinent clinical information, including history, physical exam and plan: Yes Notes (Text): 08/07/17 20:05 Patient was seen and examined at 11:30 AM 08/07/17. Exam, assessment and plan were gone over with the resident Also on ROS: Diarrhea clear persists but states now mixed with softer stool Tolerating regular diet NO abdominal pain Skin on fingertips pealing since her admission to [place]: now resolved Bifrontal headache during the night Trouble sleeping throughout the night Also on Exam: GI: Epigastric tenderness without guarding/rebound upon deep palpation Skin: finger tips with skin peeling from tips to dip line bilaterally on all fingers (no signs of cellulitis): improved Assessments: 1). Acute Pancreatitis/Pseudocyst/Phlegmon LR @200 ml/hour Regular Diet with Low Fat Lipase/Protease/Amylase 42,000 Units PO ACHS Meropenem Blood Culture 08/03/17: NGTD Urine Culture 08/03/17: negative Speak with ID Dr. Victor about length of antibiotic treatment and IV to PO switch Repeat CT Abdomen/Pelvis in 3 months or earlier if there is any worsening of abdominal pain and or n/v Perform EUS FNA Bx of Pancreas if there is no improvement of cyst upon repeat CT Abdomen/Pelvis GI Dr. Haro Surgery Dr. Lau 2). Elevated LFTs Likely secondary to heavy alcohol abuse (1 liter of Vodka daily) Trending down Hepatitis Panel negative HIV negative 3). Hx Alcohol Abuse Clonidine PRN Folic Acid Gabapentin Ativan PRN MVI Thiamine 4). 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 Anemia Likely secondary to Alcohol Abuse Hgb/Hct are stable 6). Diarrhea C. diff is negative O&P are negative F/U Stool Culture 7). Skin Pealing Monitor for now 8). 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 Prophylaxis Florastor Bilateral SCDs NO PPI secondary to the diarrhea Cr Lopes D.O.
[2017-08-08 00:16] VITALS: TEMP 99.2
[2017-08-08] MEDS: Lactated Ringer's 1,000 ML IV SCH ×4 (03:26→13:00)
[2017-08-08] MEDS: Meropenem 1 GM in Sodium Chloride 0.9% 100 ML IVPB SCH (05:32)
--- NOTE | 2017-08-08 06:47 | CP.PCM.PN ---
<Mikey Merida - Last Filed: 08/08/17 08:42> Subjective - Date & Time of Evaluation Date of Evaluation: 08/08/17 Time of Evaluation: 06:00 - Subjective Subjective: GI progress note: Pt seen and examined at bedside. No acute events overnight. Pt complains of mild abdominal distension however states that her diarrhea has slowed down. Tolerated PO diet. Denies any nausea or vomiting. 12 Point ROS performed and negative other than stated above. Objective - Vital Signs/Intake and Output Vital Signs (last 24 hours): Temp Pulse Resp BP Pulse Ox 99.2 F 81 20 156/83 H 97 08/08/17 00:12 08/08/17 00:12 08/08/17 00:12 08/08/17 00:12 08/08/17 00:12 Intake and Output: 08/07/17 08/08/17 18:59 06:59 Intake Total 1979 2299 Balance 19790 - Medications Medications: Current Medications Clonidine HCl (Catapres) 0.1 mg PO Q4H PRN PRN Reason: Symptoms of alcohol withdrawl Last Admin: 08/07/17 09:46 Dose: 0.1 mg Folic Acid (Folic Acid) 1 mg PO DAILY [facility] Last Admin: 08/07/17 09:46 Dose: 1 mg Gabapentin (Neurontin) 100 mg PO TID [facility] Last Admin: 08/07/17 18:40 Dose: 100 mg Lactated Ringer's (Lactated Ringer's) 1,000 mls @ 200 mls/hr IV .Q5H [facility] Last Admin: 08/08/17 03:27 Dose: Not Given Meropenem 1 gm/ Sodium (Chloride) 100 mls @ 100 mls/hr IVPB Q8 [facility] Last Admin: 08/08/17 05:32 Dose: 100 mls/hr Lorazepam (Ativan) 1 mg PO Q6 PRN PRN Reason: Symptoms of alcohol withdrawl Last Admin: 08/01/17 16:49 Dose: 1 mg Magnesium Oxide (Mag-Ox) 400 mg PO BID [facility] Last Admin: 08/04/17 10:25 Dose: 400 mg Multivitamins (Hexavitamin) 1 tab PO DAILY [facility] Last Admin: 08/04/17 09:47 Dose: 1 tab Nitrofurantoin Macrocrystals (Macrobid) 100 mg PO Q12H [facility] Last Admin: 08/04/17 05:34 Dose: 100 mg Pantoprazole Sodium (Protonix Ec Tab) 40 mg PO ACB [facility] Last Admin: 08/07/17 08:35 Dose: 40 mg Saccharomyces Boulardii (Florastor) 250 mg PO BID [facility] Last Admin: 08/07/17 18:40 Dose: 250 mg Sertraline HCl (Zoloft) 100 mg PO DAILY [facility] Last Admin: 08/07/17 09:46 Dose: 100 mg Thiamine HCl (Vitamin B1 Tab) 100 mg PO DAILY [facility] Last Admin: 08/07/17 09:46 Dose: 100 mg Trazodone HCl (Desyrel) 100 mg PO HS PRN PRN Reason: Insomnia Last Admin: 08/07/17 21:28 Dose: 100 mg - Labs Labs: 08/07/17 07:50 08/07/17 07:50 - Constitutional Appears: No Acute Distress - Head Exam Head Exam: ATRAUMATIC, NORMOCEPHALIC - Eye Exam Eye Exam: EOMI - ENT Exam ENT Exam: Mucous Membranes Moist - Respiratory Exam Respiratory Exam: Clear to Ausculation Bilateral. absent: Rales, Wheezes - Cardiovascular Exam Cardiovascular Exam: REGULAR RHYTHM, RRR, +S1, +S2 - GI/Abdominal Exam GI & Abdominal Exam: Soft, Normal Bowel Sounds. absent: Distended, Tenderness, Organomegaly - Extremities Exam Extremities Exam: absent: Calf Tenderness - Neurological Exam Neurological Exam: Alert, Awake, Oriented x3 - Psychiatric Exam Psychiatric exam: Normal Affect, Normal Mood - Skin Skin Exam: Dry, Intact, Warm Assessment and Plan - Assessment and Plan (Free Text) Assessment: 37 F with past medical history ETOH abuse presents following being transferred here from [facility] to psychiatry unit here for depression and visual hallucination. Pt complaining of severe abdominal pain with diarrhea, found to have a presumed alcoholic hepatitis which is now resolving, and an acute pancreatitis with pseudocyst formation. 1. Acute pancreatitis 2. Presumed alcoholic hepatitis - now resolving 3. Diarrhea - Low fat diet as tolerated - IV fluids with LR @ 200 - Continue Pacreaze for pancreatic insufficiency and diarrhea - Continue Protonix 40mg PO ACB - Follow up stool work up for diarrhea - negative - Blood cultures negative - Would consider stopping abx therapy since it may be associated with diarrhea - Anti-emetics PRN - Pain control - No intervention for pseudocyst required at this time in this acute phase of pancreatitis - Strongly encouraged abstinence of both smoking and drinking - Patient encouraged and will benefit in following up in outpatient GI clinic - Will cont to monitor patients clinical course Case and plan was reviewed and discussed in detail with Dr Haro. <Laz Haro - Last Filed: 08/08/17 10:06> Objective - Vital Signs/Intake and Output Vital Signs (last 24 hours): Temp Pulse Resp BP Pulse Ox 99.2 F 80 20 158/90 H 98 08/08/17 07:48 08/08/17 07:48 08/08/17 07:48 08/08/17 07:48 08/08/17 07:48 Intake and Output: 08/08/17 08/08/17 06:59 18:59 Intake Total 2300 Balance 2300 - Medications Medications: Current Medications Clonidine HCl (Catapres) 0.1 mg PO Q4H PRN PRN Reason: Symptoms of alcohol withdrawl Last Admin: 08/07/17 09:46 Dose: 0.1 mg Folic Acid (Folic Acid) 1 mg PO DAILY [facility] Last Admin: 08/07/17 09:46 Dose: 1 mg Gabapentin (Neurontin) 100 mg PO TID [facility] Last Admin: 08/07/17 18:40 Dose: 100 mg Lactated Ringer's (Lactated Ringer's) 1,000 mls @ 200 mls/hr IV .Q5H [facility] Last Admin: 08/08/17 03:27 Dose: Not Given Meropenem 1 gm/ Sodium (Chloride) 100 mls @ 100 mls/hr IVPB Q8 [facility] Last Admin: 08/08/17 05:32 Dose: 100 mls/hr Lorazepam (Ativan) 1 mg PO Q6 PRN PRN Reason: Symptoms of alcohol withdrawl Last Admin: 08/01/17 16:49 Dose: 1 mg Magnesium Oxide (Mag-Ox) 400 mg PO BID [facility] Last Admin: 08/04/17 10:25 Dose: 400 mg Multivitamins (Hexavitamin) 1 tab PO DAILY [facility] Last Admin: 08/04/17 09:47 Dose: 1 tab Nitrofurantoin Macrocrystals (Macrobid) 100 mg PO Q12H [facility] Last Admin: 08/04/17 05:34 Dose: 100 mg Pantoprazole Sodium (Protonix Ec Tab) 40 mg PO ACB [facility] Last Admin: 08/08/17 08:08 Dose: 40 mg Saccharomyces Boulardii (Florastor) 250 mg PO BID [facility] Last Admin: 08/07/17 18:40 Dose: 250 mg Sertraline HCl (Zoloft) 100 mg PO DAILY [facility] Last Admin: 08/07/17 09:46 Dose: 100 mg Thiamine HCl (Vitamin B1 Tab) 100 mg PO DAILY [facility] Last Admin: 08/07/17 09:46 Dose: 100 mg Trazodone HCl (Desyrel) 100 mg PO HS PRN PRN Reason: Insomnia Last Admin: 08/07/17 21:28 Dose: 100 mg - Labs Labs: 08/07/17 07:50 08/07/17 07:50 Attending/Attestation - Attestation I have personally seen and examined this patient.: Yes I have fully participated in the care of the patient.: Yes I have reviewed all pertinent clinical information, including history, physical exam and plan: Yes Notes (Text): 08/08/17 10:03 I have seen and examined patient with GI fellow and biomedical service engineer. No acute events overnight, she is seen sitting at bedside, appears quite comfortable. Her abdominal pain and diarrhea have resolved. She is tolerating PO diet without difficulty. Review of vitals from today shows elevated BP. ETOH abuse Acute pancreatitis, pseudocyst - Low fat diet as tolerated - Continue with pancreatic enzyme replacement therapy - ETOH cessation counseling - LFTs stable, continue to monitor - No further planned GI intervention, will sign off case. Suggest additional outpatient follow up. Please reconsult as necessary, thank you.
[2017-08-08 07:51] VITALS: BP 158/90; PULSE 80; O2SAT 98
[2017-08-08] MEDS: LIPASE/PROTEASE/AMYLASE 21,000 U ECC PO SCH ×2 (08:08→12:30)
[2017-08-08] MEDS: Pantoprazole 40 mg EC Tab PO SCH (08:08)
[2017-08-08] MEDS: Saccharomyces Boulardi 250 mg Cap PO SCH (10:13)
[2017-08-08] MEDS: Multiple Vitamins Tab PO SCH (10:14)
[2017-08-08 11:55] LABS: BASO # 0.1 K/uL (0.0-0.2); BASO % 1.4 % (0.0-2.0); EOS % 0.4 % (0.0-4.0); HEMOGLOBIN 10.1 g/dL (11.0-16.0); LYMPH % 12.4 % (20.0-40.0); MEAN CELL VOLUME 106.1 fL (81.0-99.0); MEAN CORPUSCULAR HEMOGLOBIN 37.1 pg (27.0-31.0); MEAN CORPUSCULAR HGB CONC 34.9 g/dL (33.0-37.0); MEAN PLATELET VOLUME 9.7 fL (7.2-11.7); MONO # 0.7 K/uL (0.0-0.8); MONO % 9.3 % (0.0-10.0); NEUT # 5.9 K/uL (1.8-7.0); NEUT % 76.5 % (50.0-75.0); RBC 2.73 Mil/uL (3.80-5.20); RED CELL DISTRIBUTION WIDTH 14.2 % (11.5-14.5); WHITE BLOOD COUNT 7.7 K/uL (4.8-10.8)
[2017-08-08 12:07] LABS: ALB/GLOB RATIO 0.8 (1.0-2.1); ALBUMIN 2.6 g/dL (3.5-5.0); ALT/SGPT 46 U/L (9-52); AST/SGOT 63 U/L (14-36); BLOOD UREA NITROGEN 3 mg/dL (7-17); CALCIUM 8.2 mg/dl (8.6-10.4); GFR AFRICAN-AMERICAN > 60; GFR NON-AFRICAN AMERICAN > 60
--- NOTE | 2017-08-08 12:53 | PCM.PYCHPN ---
Psychiatric Progress Note - Psychiatric Progress Note Patient seen today, length of contact: 15 min Patient Chief Complaint: I am doing much better Problems Identified/Issues Discussed: Patient seen and evaluated, chart reviewed and discussed with the nurse. The patient reports improvement in her mood and symptoms. She reports improvement in the voices and sleep. She is going to be discharged today. She is compliant with her medications and denies any side effects. Supportive therapy and psychoeducation were given. Medication Change: No Medical Record Reviewed: Yes Mental Status Examination - Cognitive Function Orientation: Person, Place, Situation, Time Memory: Intact Attention: WNL Concentration: WNL Association: WNL Fund of Knowledge: WN - Mood Mood: Neutral - Affect Affect: Constricted - Speech Speech: Soft - Formal Thought Process Formal Thought Process: No Impairment - Suicidal Ideation Suicidal Ideation: No - Homicidal Ideation Homicidal Ideation: No Goal/Treatment Plan - Goal/Treatment Plan Need for Continued Stay: Other Progress Toward Problem(s) and Goals/Treatment Plan: Major Depressive Disorder recurrent severe with psychotic features -CBT -Psychoeducation -Supportive therapy, group therapy, individual therapy -Trazodone 100 mg by mouth daily at bedtime -Zoloft 100 mg by mouth daily -Neurontin 100 mg by mouth 2 times a day Pt psychiatrically stable and clear for discharge. - Smoking Cessation Smoking Cessation Initiated: No
--- NOTE | 2017-08-08 13:24 | CP.PCM.DIS ---
Provider - Provider Date of Admission: 07/31/17 02:09 Attending physician: Cr Lopes MD Primary care physician: PMD:Caleb Consults: Surgery: Dr. Pendleton ID: Dr. Victor GI: Dr.. James Psych: Dr. Jimenes Time Spent in preparation of Discharge (in minutes): 45 Hospital Course - Lab Results Lab Results: Micro Results 08/03/17 17:45 Blood-Venous Blood Culture - Preliminary NO GROWTH AFTER 4 DAYS 08/03/17 17:00 Blood-Venous Blood Culture - Preliminary NO GROWTH AFTER 4 DAYS 08/05/17 13:07 Stool Stool Culture - Final NO SALMONELLA, SHIGELLA OR CAMPYLOBACTER ISOLATED. 08/05/17 13:07 Stool Ova and Parasite Concentrate Exam - Final 08/03/17 15:06 Urine,Clean Catch Urine Culture - Final Most Recent Lab Values WBC 7.7 K/uL (4.8-10.8) 08/08/17 11:30 RBC 2.73 Mil/uL (3.80-5.20) L 08/08/17 11:30 Hgb 10.1 g/dL (11.0-16.0) L 08/08/17 11:30 Hct 29.0 % (34.0-47.0) L 08/08/17 11:30 MCV 106.1 fL (81.0-99.0) H 08/08/17 11:30 MCH 37.1 pg (27.0-31.0) H 08/08/17 11:30 MCHC 34.9 g/dL (33.0-37.0) 08/08/17 11:30 RDW 14.2 % (11.5-14.5) 08/08/17 11:30 Plt Count 479 K/uL (130-400) H 08/08/17 11:30 MPV 9.7 fL (7.2-11.7) 08/08/17 11:30 Neut % (Auto) 76.5 % (50.0-75.0) H 08/08/17 11:30 Lymph % (Auto) 12.4 % (20.0-40.0) L 08/08/17 11:30 [place] % (Auto) 9.3 % (0.0-10.0) 08/08/17 11:30 Eos % (Auto) 0.4 % (0.0-4.0) 08/08/17 11:30 Baso % (Auto) 1.4 % (0.0-2.0) 08/08/17 11:30 Neut # (Auto) 5.9 K/uL (1.8-7.0) 08/08/17 11:30 Lymph # (Auto) 1.0 K/uL (1.0-4.3) 08/08/17 11:30 [place] # (Auto) 0.7 K/uL (0.0-0.8) 08/08/17 11:30 Eos # (Auto) 0.0 K/uL (0.0-0.7) 08/08/17 11:30 Baso # (Auto) 0.1 K/uL (0.0-0.2) 08/08/17 11:30 Differential Comment 08/03/17 08:48 ESR 102 mm/hr (0-20) H 08/04/17 07:25 Sodium 131 mmol/L (132-148) L 08/08/17 11:30 Potassium 3.9 mmol/L (3.6-5.2) 08/08/17 11:30 Chloride 97 mmol/L (98-107) L 08/08/17 11:30 Carbon Dioxide 31 mmol/L (22-30) H 08/08/17 11:30 Anion Gap 7 (10-20) L 08/08/17 11:30 BUN 3 mg/dL (7-17) L 08/08/17 11:30 Creatinine 0.6 mg/dL (0.7-1.2) L 08/08/17 11:30 Est GFR ( Amer) > 60 08/08/17 11:30 Est GFR (Non-Af Amer) > 60 08/08/17 11:30 Random Glucose 90 mg/dL (65-105) 08/08/17 11:30 Calcium 8.2 mg/dl (8.6-10.4) L 08/08/17 11:30 Phosphorus 4.0 mg/dL (2.5-4.5) 08/05/17 07:43 Magnesium 1.8 mg/dL (1.6-2.3) 08/05/17 07:43 Total Bilirubin 0.5 mg/dL (0.2-1.3) 08/08/17 11:30 AST 63 U/L (14-36) H 08/08/17 11:30 ALT 46 U/L (9-52) 08/08/17 11:30 Alkaline Phosphatase 192 U/L (38-126) H 08/08/17 11:30 C-React Prot High Sens > 15.00 mg/L (1.00-3.00) H 08/03/17 17:46 Total Protein 6.0 g/dL (6.3-8.3) L 08/08/17 11:30 Albumin 2.6 g/dL (3.5-5.0) L 08/08/17 11:30 Globulin 3.4 gm/dL (2.2-3.9) 08/08/17 11:30 Albumin/Globulin Ratio 0.8 (1.0-2.1) L 08/08/17 11:30 Amylase 64 U/L (30-110) 08/03/17 08:48 Lipase 230 U/L (23-300) 08/06/17 08:39 Vitamin B12 561 pg/mL (239-931) 08/07/17 07:50 Folate 10.2 ng/mL 08/07/17 07:50 Procalcitonin 0.38 NG/ML (0.19-0.49) 08/03/17 17:46 TSH 3rd Generation 4.18 mIU/L (0.46-4.68) 08/03/17 17:46 Beta HCG, Quant < 2.39 mIU/ML 08/03/17 17:46 Urine Color Arlin (YELLOW) 08/03/17 15:15 Urine Clarity Hazy (Clear) 08/03/17 15:15 Urine pH 5.0 (5.0-8.0) 08/03/17 15:15 Ur Specific [place] 1.021 (1.003-1.030) 08/03/17 15:15 Urine Protein 2+ mg/dL (NEGATIVE) H 08/03/17 15:15 Urine Glucose (UA) 1+ mg/dL (Normal) 08/03/17 15:15 Urine Ketones Trace mg/dL (NEGATIVE) 08/03/17 15:15 Urine Blood Negative (NEGATIVE) 08/03/17 15:15 Urine Nitrate Negative (NEGATIVE) 08/03/17 15:15 Urine Bilirubin 1+ (NEGATIVE) H 08/03/17 15:15 Urine Urobilinogen 4.0 mg/dL (0.2-1.0) H 08/03/17 15:15 Ur Leukocyte Esterase 1+ Boyd/uL (Negative) H 08/03/17 15:15 Urine WBC (Auto) 35 /hpf (0-5) H 08/03/17 15:15 Urine RBC (Auto) 25 /hpf (0-3) H 08/03/17 15:15 Ur Squamous Epith Cells 19 /hpf (0-5) H 08/03/17 15:15 Urine Bacteria Occ (<OCC) H 08/03/17 15:15 Hyaline Casts >20 /lpf (0-2) H 08/03/17 15:15 C. difficile Ag & Toxin Negative (NEGATIVE) 08/05/17 12:07 Hepatitis A IgM Ab Negative (NEGATIVE) 08/03/17 17:46 Hep Bs Antigen Negative (NEGATIVE) 08/03/17 17:46 Hep B Core IgM Ab Negative (NEGATIVE) 08/03/17 17:46 Hepatitis C Antibody Negative (NEGATIVE) 08/03/17 17:46 HIV 1&2 Antibody Screen Negative (NEGATIVE) 08/03/17 17:46 - Hospital Course Hospital Course: Discharge Summary PMD:Denies Consults: ID: Valente, GI: James, Psych: Jalil, Surgery: [facility] PRINCIPAL DISCHARGE DIAGNOSES: Pancreatitis with phlegmon and pseudocyst Alcohol abuse Tobacco abuse UTI CC: Abdominal pain HISTORY OF PRESENT ILLNESS:37 F with past medical history ETOH abuse presents following being transferred here from [facility] to psychiatry unit here for depression and visual hallucination, currently with symptoms of severe abdominal pain. Patient states that this abdominal pain first started 10 days ago when she initially went to [facility]. The pain is epigastric, intermittent, radiates to the LUQ, and 10/10 in severity at its worse. The pain is associated with multiple bouts of non bloody diarrhea daily. She denies any nausea or vomiting. Pt denies this type of pain ever occurring before. Pt does admit to heavy drinking, 1 pint of vodka daily for the past 1.5 years. She does states that she has gone to the hospital before for chest pain but never for abdominal pain, denies any hx of pancreatitis. Initially pt was found to have wbc of 18, transaminitis, T. bili 1.4, lipase wnl, CT abd & pelvis showed - acute pancreatitis associated with peripancreatic fluid and infiltration with pseudocyst formation roughly [id number], a large amorphous phlegmonous component of inflammatory changes anterior to pancreatic head and body, wall thickening of several loops of small bowel and stomach, hepatomegaly with fatty infiltration , mild splenomegaly, mild wall thickening of splenic flexure and proximal descending colon. GI consulted for pancreatitis and pseudocyst. 12 Point ROS performed and negative other than stated above. PMH: depression PSH: denies Med: Refer to MAR ALL: [facility] SH: Unemployed, admits to drinking 1 pint of vodka for 1.5 years, smokes half PPD for >20 years, denies any recreational drugs FH: Denies any family hx of GI malignancies Endo Hx: Denies having any prior EGD or colonoscopy. SUMMARY OF COURSE: Martina Russo is a 37 year of female who admitted to [facility] from 07/31/17-08/08/17. While admitted she was seen by Psychiatry, Infectious disease, and GI, and Surgery. Surgery saw and examined her and determined no intervention was required at this time and signed off. Infectious disease started the patient on IV Meropenem. Patient was placed on NPO to give her bowel and pancreas rest. Patient was also given IV fluids and pain medicine. While admitted the patient's potassium was found to be low and it was repleted. GI saw the patient and also determined no further intervention was required at this time. Patient's diet was advanced to clear liquid, then to full liquid, then to soft diet with no complaints. Patient re-evaluated by Psychiatry and deemed stable to be discharged.Patient was seen today and determined stable to be discharged with the following instructions listed below. Imaging: CT abd & pelvis showed - acute pancreatitis associated with peripancreatic fluid and infiltration with pseudocyst formation roughly [id number], a large amorphous phlegmonous component of inflammatory changes anterior to pancreatic head and body, wall thickening of several loops of small bowel and stomach, hepatomegaly with fatty infiltration , mild splenomegaly, mild wall thickening of splenic flexure and proximal descending colon. Chest xray: no active disease Discharge Instructions: 1. Advised patient to follow up at [facility] ( [address] [place] [address], [place], ) within 7-10 days after discharge. Here she will will primary care. 2.Patient is also advised to follow up with [facility] within 7-10 days upon discharge. 3. Patient is to have a repeat Abdomen/pelvis CT with po and iv contrast in 2 to 3 months. 4.Advised patient to attend alcoholics anonymous meetings (AA). Patient provided information regarding meetings in the area. 5. Patient to follow up with Dr. Minna Jimenes at the designated time given to the patient. 5. Advised patient to return to hospital for any new or worsening symptoms: that include nausea, vomiting, abdominal pain. Discharge Medications: 1.Pancrease 42, 000 Units PO ACHS, #60, No refills 2.Neurontin 100mg PO BID, #60 3.Protonix 40 daily po, #30 4.Zoloft 100mg po daily, #30 5.Trazadone 100mg po hs prn, #30 Discharge Exam - Head Exam Head Exam: ATRAUMATIC, NORMOCEPHALIC - Eye Exam Eye Exam: EOMI, Normal appearance, PERRL Pupil Exam: NORMAL ACCOMODATION, PERRL. absent: Irregular, Unequal - ENT Exam ENT Exam: Mucous Membranes Moist, Normal Oropharynx - Respiratory Exam Respiratory Exam: Clear to PA & Lateral, NORMAL BREATHING PATTERN, UNREMARKABLE. absent: Rhonchi, Wheezes - Cardiovascular Exam Cardiovascular Exam: REGULAR RHYTHM, +S1, +S2 - GI/Abdominal Exam GI & Abdominal Exam: Normal Bowel Sounds, Unremarkable. absent: Hypoactive Bowel Sounds, Pulsatile Mass - Extremities Exam Extremities exam: full ROM - Back Exam Back exam: NORMAL INSPECTION. absent: CVA tenderness (L), CVA tenderness (R), paraspinal tenderness - Neurological Exam Neurological exam: Alert, CN II-XII Intact, Oriented x3 - Psychiatric Exam Psychiatric exam: Normal Affect, Normal Mood - Skin Skin Exam: Dry, Intact, Normal Color, Warm Discharge Plan - Discharge Medications Prescriptions: Amylase/Lipase/Protease [Pancrease [id number] U] 42,000 unit PO ACHS # 60 ecc Gabapentin [Neurontin] 100 mg PO BID #60 cap Pantoprazole Sodium [Protonix] 40 mg PO DAILY #30 tab Sertraline [Zoloft] 100 mg PO DAILY #30 tab traZODone [Desyrel] 100 mg PO HS PRN #30 tab PRN Reason: Insomnia - Follow Up Plan Condition: FAIR Disposition: HOME/ ROUTINE Instructions: Trazodone (By mouth), Sertraline (By mouth), Gabapentin (By mouth ), Pantoprazole (By mouth), Mood Disorders (DC), Depression (DC), Abuse of Alcohol (DC) Referrals: Jimi Jimenes MD [Staff Provider] -
== END 2017-08-08 14:42 | disposition home or self-care (01) | DRG 557 ==
LOC: C.ER 01:34 → C.5E 02:09 → C.3T 08-04 14:38
PROVIDERS: ADMIT Family Medicine; ATTEND Family Medicine
PROC: GZ56ZZZ Individual Psychotherapy, Supportive (ICD-10-PCS; principal; 2017-07-31)
DX: K85.90 Acute pancreatitis without necrosis or infection, unspecified (principal); K86.3 Pseudocyst of pancreas; F33.3 Major depressive disorder, recurrent, severe with psychotic symptoms; K70.10 Alcoholic hepatitis without ascites; E87.6 Hypokalemia; N39.0 Urinary tract infection, site not specified; F10.10 Alcohol abuse, uncomplicated; E83.42 Hypomagnesemia; F17.210 Nicotine dependence, cigarettes, uncomplicated; F41.9 Anxiety disorder, unspecified; D64.9 Anemia, unspecified

== ENCOUNTER 2018-10-17 19:22 | Inpatient (IN) | payer OTHER ==
--- NOTE | 2018-10-17 19:51 | C.PDOC ---
History Of Present Illness 38 year old female with PMHx of depression, alcoholic pancreatitis and alcohol abuse presents to the ED requesting detox from alcohol. Patient was pre- screened. 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 Last alcoholic drink was on her way to the ED. Denies SI/HI, or use of other drugs. Time Seen by Provider: 10/17/18 19:46 Chief Complaint (Nursing): Substance Abuse History Per: Patient History/Exam Limitations: no limitations Onset/Duration Of Symptoms: Hrs Suicide/Self Injury Attempted (Context): None Modifying Factor(s): Alcohol Associated Symptoms: Depression. denies: Suicidal Thoughts, Suicidal Plan Additional History Per: Prior Records Past Medical History Reviewed: Historical Data, Nursing Documentation, Vital Signs Vital Signs: Last Vital Signs Temp 98.1 F 10/17/18 19:23 Pulse 115 H 10/17/18 19:23 Resp 20 10/17/18 19:23 BP 148/94 H 10/17/18 19:23 Pulse Ox 96 10/17/18 19:23 - Medical History PMH: Depression, Pancreatitis Denies: Chronic Kidney Disease Surgical History: No Surg Hx - [facility] Procedures INDIVIDUAL PSYCHOTHERAPY, SUPPORTIVE (07/31/17) Family History: States: No Known Family Hx - Social History Hx Alcohol Use: Yes Hx Substance Use: Yes - Immunization History Hx Tetanus Toxoid Vaccination: No Hx Influenza Vaccination: No Hx Pneumococcal Vaccination: No Review Of Systems Except As Marked, All Systems Reviewed And Found Negative. Constitutional: Negative for: Fever, Chills Cardiovascular: Negative for: Chest Pain Respiratory: Negative for: Shortness of Breath Gastrointestinal: Negative for: Nausea, Vomiting, Diarrhea Psych: Negative for: Suicidal ideation Physical Exam - Physical Exam Appears: Non-toxic, No Acute Distress Skin: Warm, Dry, No Rash Head: Normacephalic Eye(s): bilateral: Normal Inspection Oral Mucosa: Moist Neck: Supple Chest: Symmetrical Cardiovascular: Rhythm Regular Respiratory: Normal Breath Sounds, No Rales, No Rhonchi, No Wheezing Gastrointestinal/Abdominal: Soft, No Tenderness Neurological/Psych: Oriented x3, Normal Speech Gait: Steady ED Course And Treatment - Laboratory Results Result Diagrams: 10/17/18 20:07 04/19/19 20:07 Lab Interpretation: Abnormal (lipase 418 H) Urine POC: Negative (tox Neg, ETOH 297 H, lipase 418 H) O2 Sat by Pulse Oximetry: 96 (RA) Pulse Ox Interpretation: Normal Medical Decision Making Medical Decision Making: Plan - Bloodwork - UA - Urine HCG Mecically cleared for Detox floor mild alcoholic pancreatitis, actively drinking ETOH today and not impeding PO intake recommend lower protein diet in addition to alcohol abstinence as theraputic measures for decreasing alcoholic pancreatitis May consult Medicine from Detox if epigastric pain worstens. Disposition Doctor Will See Patient In The: Hospital Counseled Patient/Family Regarding: Studies Performed, Diagnosis - Disposition Disposition: HOSPITALIZED Disposition Time: 21:20 Condition: GOOD Forms: [facility] ([place]) - Clinical Impression Clinical Impression: Alcohol abuse, Alcoholic pancreatitis - Scribe Statement The provider has reviewed the documentation as recorded by the Scribe Idalmis Hines All medical record entries made by the Scribe were at my direction and personally dictated by me. I have reviewed the chart and agree that the record accurately reflects my personal performance of the history, physical exam, medical decision making, and the department course for this patient. I have also personally directed, reviewed, and agree with the discharge instructions and disposition.
[2018-10-17 20:13] LABS: MONO # 0.2 K/uL (0.0-0.8)
[2018-10-17 20:13] LABS: SQUAMOUS EPITHIAL 1 /hpf (0-5); URINE BACTERIA RARE (<OCC); URINE BILIRUBIN NEGATIVE (NEGATIVE); URINE BLOOD 1+ (NEGATIVE); URINE CLARITY Hazy (Clear); URINE COLOR Amber (YELLOW); URINE GLUCOSE (UA) 1+ mg/dL (Normal); URINE LEUKOCYTE ESTERASE NEG Leu/uL (Negative); URINE PROTEIN 1+ mg/dL (NEGATIVE)
[2018-10-17 20:17] LABS: LYMPH # 2.6 K/uL (1.0-4.3); MEAN PLATELET VOLUME 8.9 fL (7.2-11.7)
[2018-10-17 20:25] LABS: ALB/GLOB RATIO 1.4 (1.0-2.1); ALBUMIN 4.5 g/dL (3.5-5.0); AST/SGOT 50 U/L (14-36); BLOOD UREA NITROGEN 8 mg/dL (7-17); CALCIUM 9.2 mg/dl (8.6-10.4); GFR NON-AFRICAN AMERICAN > 60; LIPASE 418 U/L (23-300)
[2018-10-17 20:26] LABS: BARBITURATES, UR NEGATIVE (NEGATIVE); BENZODIAZEPINES, UR NEGATIVE (NEGATIVE); OPIATES, UR NEGATIVE (NEGATIVE); PHENCYCLIDINE, UR NEGATIVE (NEGATIVE)
[2018-10-17 20:28] LABS: ALT/SGPT < 6 U/L (9-52)
[2018-10-17 20:37] LABS: BASO % 0.6 % (0.0-2.0); EOS % 0.3 % (0.0-4.0); LYMPH % 39.7 % (20.0-40.0); MEAN CORPUSCULAR HEMOGLOBIN 40.4 pg (27.0-31.0); MEAN CORPUSCULAR HGB CONC 34.9 g/dL (33.0-37.0); MONO % 2.5 % (0.0-10.0); NEUT # 3.8 K/uL (1.8-7.0); NEUT % 56.9 % (50.0-75.0); NRBC % 0.2 % (0.0-2.0); RBC 3.02 Mil/uL (3.80-5.20); WHITE BLOOD COUNT 6.6 K/uL (4.8-10.8)
[2018-10-17 20:39] LABS: HEMOGLOBIN 12.2 g/dL (11.0-16.0)
--- NOTE | 2018-10-17 23:17 | PCM.BM ---
Treatment Plan Problems - Problems identified on initial assessmt Knowledge Deficit: Alcohol Use Date Initiated: 10/17/18 Time Initiated: 10:45 Assessment reference: NA Status: Active Defensive Coping Date Initiated: 10/17/18 Time Initiated: :45 Assessment reference: NA Status: Active Denial Date Initiated: 10/17/18 Time Initiated: 10:45 Assessment reference: NA Status: Active Treatment assets and liabiliti Patient Assests: cooperative, ADL independent, physically healthy, negotiates basic needs, cognitively intact Patient Liabilities: substance abuse - Milieu Protocol Maintain good personal hygiene: daily Encourage regular showers, daily Remind patient to perform daily oral care, daily Assist patient to perform ADL's Maintain personal safety: every shift Educate patient to report safety concerns to staff, every shift Monitor environment for contraband/sharps Medication safety: Monitor for expected outcome, potential side effects: every shift, Assess barriers to learning: every shift, Assess readiness for medication education: every shift
[2018-10-18] MEDS: Pantoprazole 20 mg EC Tab PO SCH (10:14)
[2018-10-18] MEDS: Multiple Vitamins Tab PO SCH (10:14)
--- NOTE | 2018-10-18 14:48 | PCM.PSYCH ---
Initial Psychiatric Evaluation - Initial Psychiatric Evaluation Type of Admission: Voluntary Legal Status: Capacity Chief Complaint (in patient's own words): "Not well, I needed help" History of Present Illness and Precipitating Events: The patient is seen, chart reviewed and case discussed. This is a 38-year-old female, single with no child. 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 The patient reports daily vodka drinking 2-3 pints a day and few cigarettes. She denies all other drug use. She has history of blackouts but no seizures. She was having withdrawal symptoms, CIWA was above 10 and treatment started. She claims she gets near DTs when she withdraws. She does not report detox or rehab admissions previously. She feels very depressed and anxious and she has passive suicidal ideation without a plan or urge. Of note, she is known from a 5 E. psych admission early last year. Past psych history: Major depression, 1 psych admission with suicidal ideation. She reports noncompliance with treatment afterwards. She had attempted suicide in the past as well. Medical history: Alcohol-induced pancreatitis. Currently her pancreas is inflamed again. Family psych history: Denies Current Medications: Active Medications Generic Name Dose Route Start Last Admin Trade Name Freq PRN Reason Stop Dose Admin Chlordiazepoxide 25 mg 10/18/18 10:00 10/18/18 10:14 Librium PO 10/23/18 09:59 25 mg Q6H SUN Administration Taper Chlordiazepoxide 25 mg 10/18/18 09:11 10/18/18 13:05 Librium PO 25 mg Q4H PRN Administration Alcohol Withdrawal Clonidine HCl 0.1 mg 10/17/18 22:31 10/18/18 13:04 Catapres PO 0.1 mg Q6 PRN Administration Symptoms of alcohol withdrawl Clonidine HCl 0.1 mg 10/18/18 09:58 Catapres PO Q4H PRN Symptoms of alcohol withdrawl Folic Acid 1 mg 10/18/18 10:00 10/18/18 10:14 Folic Acid PO 1 mg DAILY SUN Administration Hydroxyzine HCl 25 mg 10/17/18 22:31 10/18/18 00:03 Atarax PO 25 mg Q6 PRN Administration Anxiety Multivitamins 1 tab 10/18/18 10:00 10/18/18 10:14 Hexavitamin PO 1 tab DAILY SUN Administration Pantoprazole Sodium 20 mg 10/18/18 10:00 10/18/18 10:14 Protonix Ec Tab PO 20 mg DAILY SUN Administration Thiamine HCl 100 mg 10/18/18 10:00 10/18/18 10:14 Vitamin B1 Tab PO 100 mg DAILY SUN Administration Trazodone HCl 50 mg 10/17/18 22:30 10/18/18 00:03 Desyrel PO 50 mg HS PRN Administration Insomnia Past Psychiatric History - Past Psychiatric History Previous Treatment History: Inpatient Pertinent Medical Hx (Current Medical&Sleep Prob, Allergies): Allergies Allergy/AdvReac Type Severity Reaction Status Date / Time No Known Allergies Allergy Verified 10/17/18 19:30 No Known Home Med 10/17/18 Review of Systems - Psychiatric Psychiatric: Abnormal Sleep Pattern, Anhedonia, Anxiety, Behavioral Changes, Change in Appetite, Depression, Difficulty Concentrating, Irritability, Mood Swings, Suicidal Ideation (no plan or intention). absent: Hallucinations, Homicidal Ideation, Paranoia Mental Status Examination - Personal Presentation Personal Presentation: Looks stated age - Affect Affect: Constricted - Motor Activity Motor Activity: Calm - Reliability in Providing Information Reliability in Providing Information: Good - Speech Speech: Organized - Mood Mood: Depressed, Anxious - Formal Thought Process Formal Thought Process: No Impairment - Cognitive Functions Orientation: Person, Place, Situation, Time Sensorium: Alert Attention/Concentration: Easily distracted Estimate of Intelligence: Average Judgement: Intact, as evidence by: Insight regarding need for hospitalization Memory: Recent intact, as evidence by: Ability to recall events of the day, Remote intact, as evidenced by: Ability to recall historical events - Risk Risk: Withdrawal, Diminished functioning - Strength & Assets Inventory Strength & Assets Inventory: Cooperative - Limitations Limitations: Other DSM 5 DX - DSM 5 DSM 5 Diagnosis: Alcohol withdrawal Alcohol use d/o - severe Major depressive d/o - recurrent, severe GUEVARA - Recommended/Plan of Treatment Treatment Recommendations and Plan of Treatment: Taper with librium Remeron for depression Gabapentin for augmentation if needed As needed medications All risks, benefits and alternatives of the meds discussed, and the pt agreed and understood. Attend groups and activities Supportive therapy and psychoeducation [place] for abstinence CBT for relapse prevention Encourage MAT Refer to rehab or IOP, and self-help groups Teach healthy lifestyle methods, i.e. diet, exercise, meditation Smoking cessation with AL Nicotine patch if needed 34 min Projected ELOS: 4-5 days Prognosis: good - Smoking Cessation Smoking Cessation Initiated: Yes
[2018-10-19] MEDS: Pantoprazole 20 mg EC Tab PO SCH (10:19)
[2018-10-19] MEDS: Multiple Vitamins Tab PO SCH (10:19)
--- NOTE | 2018-10-19 15:26 | PCM.PYCHPN ---
Psychiatric Progress Note - Psychiatric Progress Note Patient Chief Complaint: "Not well, I needed help" Medication Change: Yes Medical Record Reviewed: Yes Mental Status Examination - Cognitive Function Orientation: Person, Place, Situation, Time - Mood Mood: Depressed, Anxious - Affect Affect: Constricted - Formal Thought Process Formal Thought Process: No Impairment Goal/Treatment Plan - Goal/Treatment Plan Progress Toward Problem(s) and Goals/Treatment Plan: Taper with librium Remeron for depression Gabapentin for augmentation if needed As needed medications All risks, benefits and alternatives of the meds discussed, and the pt agreed and understood. Attend groups and activities Supportive therapy and psychoeducation [place] for abstinence CBT for relapse prevention Encourage MAT Refer to rehab or IOP, and self-help groups Teach healthy lifestyle methods, i.e. diet, exercise, meditation Smoking cessation with VT Nicotine patch if needed 34 min
[2018-10-20 08:06] LABS: AMYLASE 80 U/L (30-110); LIPASE 271 U/L (23-300)
--- NOTE | 2018-10-20 08:53 | PCM.PYCHDC ---
Mental Status Examination - Mental Status Examination Orientation: Person Discharge Summary - Discharge Note Laboratory Data: Abnormal Lab Results 10/20/18 07:24 Amylase 80 Lipase 271 Consultations:: List each consultation separately and include: 1. Reason for request. 2. Findings. 3. Follow-up Summary of Hospital Course include:: 1. Description of specific treatment plan utilized for patients during their course of treatmen. 2. Summarize the time- course for resolution of acute symptoms and/or regressed behaviors. 3. Describe issues identified and worked on during hospitalization. 4. Describe medication utilized. 5. Describe medical problems identified and treated. 6. Reassessment of suicide risk Summary of Hospital Course: The patient is seen, chart reviewed and case discussed. This is a 38-year-old female, single with no child. 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 The patient reports daily vodka drinking 2-3 pints a day and few cigarettes. She denies all other drug use. She has history of blackouts but no seizures. She was having withdrawal symptoms, CIWA was above 10 and treatment started. She claims she gets near DTs when she withdraws. She does not report detox or rehab admissions previously. She feels very depressed and anxious and she has passive suicidal ideation without a plan or urge. Of note, she is known from a 5 E. psych admission early last year. Past psych history: Major depression, 1 psych admission with suicidal ideation. She reports noncompliance with treatment afterwards. She had attempted suicide in the past as well. Medical history: Alcohol-induced pancreatitis. Currently her pancreas is inflamed again. Family psych history: Denies She asked to be d/c'ed a day early b/c of financial reasons (needs to pay smt) - risks discussed and she understood. She is given numbers of IOPs in her town and she will also attend AA daily. - Final Diagnosis (DSM 5) Condition upon Discharge: GOOD Disposition: HOME/ ROUTINE Follow-up Treatment Plan: Taper with librium Remeron for depression Gabapentin for augmentation if needed As needed medications All risks, benefits and alternatives of the meds discussed, and the pt agreed and understood. Attend groups and activities Supportive therapy and psychoeducation [place] for abstinence CBT for relapse prevention Encourage MAT Refer to rehab or IOP, and self-help groups Teach healthy lifestyle methods, i.e. diet, exercise, meditation Smoking cessation with [place] Nicotine patch if needed 34 min Prescriptions/Medication Reconciliation: Gabapentin [Neurontin] 300 mg PO BID #60 cap hydrOXYzine HCl [Atarax] 25 mg PO BID PRN #30 tab PRN Reason: Anxiety Mirtazapine [Remeron] 15 mg PO HS #30 tab Pantoprazole [Protonix EC Tab] 20 mg PO DAILY #30 ect traZODone [Desyrel] 100 mg PO HS PRN #30 tab PRN Reason: Insomnia
[2018-10-20 09:09] VITALS: BP 133/88; PULSE 100; RESP 20; TEMP 98.9; O2SAT 97
[2018-10-20] MEDS: Pantoprazole 20 mg EC Tab PO SCH (09:39)
[2018-10-20] MEDS: Multiple Vitamins Tab PO SCH (09:39)
== END 2018-10-20 09:45 | disposition home or self-care (01) | DRG 750 ==
LOC: C.ER 19:22 → C.7D 21:20
PROVIDERS: ADMIT Psychiatry & Neurology Psychiatry; ATTEND Psychiatry & Neurology Psychiatry
PROC: HZ2ZZZZ Detoxification Services for Substance Abuse Treatment (ICD-10-PCS; principal; 2018-10-17)
PROC: HZ52ZZZ Individual Psychotherapy for Substance Abuse Treatment, Cognitive-Behavioral (ICD-10-PCS; 2018-10-17)
PROC: HZ59ZZZ Individual Psychotherapy for Substance Abuse Treatment, Supportive (ICD-10-PCS; 2018-10-17)
PROC: HZ56ZZZ Individual Psychotherapy for Substance Abuse Treatment, Psychoeducation (ICD-10-PCS; 2018-10-17)
PROC: HZ42ZZZ Group Counseling for Substance Abuse Treatment, Cognitive-Behavioral (ICD-10-PCS; 2018-10-17)
PROC: HZ46ZZZ Group Counseling for Substance Abuse Treatment, Psychoeducation (ICD-10-PCS; 2018-10-17)
PROC: GZHZZZZ Group Psychotherapy (ICD-10-PCS; 2018-10-17)
PROC: GZ58ZZZ Individual Psychotherapy, Cognitive-Behavioral (ICD-10-PCS; 2018-10-17)
PROC: GZ56ZZZ Individual Psychotherapy, Supportive (ICD-10-PCS; 2018-10-17)
DX: F10.231 Alcohol dependence with withdrawal delirium (principal); K85.20 Alcohol induced acute pancreatitis without necrosis or infection; Y90.8 Blood alcohol level of 240 mg/100 ml or more; R45.851 Suicidal ideations; Z91.5 Personal history of self-harm; F32.9 Major depressive disorder, single episode, unspecified; G47.00 Insomnia, unspecified